=== PATIENT | female | born 1960 | race Caucasian/White ===

== ENCOUNTER 2017-03-17 00:55 | Inpatient (IN) | payer MEDICAID, OTHER ==
--- NOTE | 2017-03-17 01:28 | ED Physician Chart ---
Chief Complaint/HPI - Patient Information Date Seen:: 03/17/17 Time Seen:: 01:15 Chief Complaint:: Leg Swelling History of Present Illness:: onset x 2 days of LE swelling and redness; pt denies H/As, Neck pain, C/P, SOB, Abd. Pain, A/N/V/D/C, fever, chills, or urinary s/s Allergies:: Allergies Allergy/AdvReac Type Severity Reaction Status Date / Time No Known Allergies Allergy Verified 03/17/17 01:07 Historian:: Patient, EMS Review:: Nurse's Note Reviewed, EMS run form Reviewed, Transfer documents Reviewed Review of Systems - Review of Systems General/Constitutional: Fever, Chills, No weight loss, No weakness, No diaphoresis, No edema, No loss of appetite Skin: No skin lesions, No rash, No bruising Head: No headache, No light-headedness Eyes: No loss of vision, No pain, No diplopia ENT: No earache, No nasal drainage, No sore throat, No tinnitus Neck: No neck pain, No swelling, No thyromegaly, No stiffness, No mass noted Cardio Vascular: No chest pain, No palpitations, No PND, No orthopnea, No edema Pulmonary: No SOB, No cough, No sputum, No wheezing GI: No nausea, No vomiting, No diarrhea, No pain, No melena, No hematochezia, No constipation, No hematemesis G/U: No dysuria, No frequency, No hematuria 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: No vaginal discharge, No abnormal vaginal bleed, No contraction Musculoskeletal: Bone or joint pain, Back pain, Muscle pain Endocrine: No polyuria, No polydipsia Psychiatric: No prior psych history, No depression, No anxiety, No suicidal ideation, No homicidal ideation, No auditory hallucination Hematopoietic: No bruising, No lymphadenopathy Allergic/Immuno: No urticaria, No angioedema Neurological: No syncope, No focal symptoms, No paresthesia, No headache, No seizure, No dizziness, No confusion, No vertigo Past Medical History - Past Medical History Obtainable: Yes Past Medical History: HTN, Asthma/COPD, CVA/TIA, Dyslipidemia, Seizures, Thyroid disorder Family History: Diabetes Melitus, HTN Social History: Non Smoker, No Alcohol, No Drug Use, Single, Care Facility Surgical History: other (Orthopedic Surgeries) Psychiatricy History: None Medication: Reviewed Family Medical History - Family Member Mother History Unknown: Yes Ethnicity: Non- Physical Exam - Physical Examination General/Constitutional: Awake, Well-developed, well-nourished, Alert, No distress, GCS 15, Non-toxic appearing, Ambulatory Head: Atraumatic Eyes: Lids, conjuctiva normal, PERRL, EOMI Skin: No rash, No skin lesions, No ecchymosis, Well hydrated, No lymphadenopathy Other Skin comments:: + LE Cellulitis ENMT: External ears, nose nl, Nasal exam nl, Lips, teeth, gums nl Neck: Nontender, Full ROM w/o pain, No JVD, No nuchal rigidity, No bruit, No mass, No stridor Respiratory: Nl effort/Exclusion, Clear to Auscultation, No Wheeze/Rhonchi/Rales Cardio Vascular: RRR, No murmur, gallop, rubs, NL S1 S2 GI: No tenderness/rebounding/guarding, No organomegaly, No hernia, Normal BS's, Nondistended, No mass/bruits, No McBurney tenderness : No CVA tenderness Extremities: No tenderness or effusion, Full ROM, normal strength in all extremities, No edema, Normal digits & nails Neuro/Psych: Alert/oriented, DTR's symmetric, Normal sensory exam, Normal motor strength, Judgement/insight normal, Mood normal, Normal gait, No focal deficits Misc: normal gait, Normal back, No paraspinal tenderness Labs/Radiology/EKG Results - Lab Results Results: unremarkable - Radiology Results Results: U/S: No DVT; Negative ED Septic Shock - . Is Septic Shock (SBP<90, OR Lactate>4 mmol\L) present?: No Reassessment (Disposition) - Reassessment Reassessment Condition:: Improved - Diagnosis Diagnosis:: Cellulitis - Aftercare/Follow up Instructions Aftercare/Follow-Up Instructions:: Counseled pt regarding lab results/diagnosis & need follow up, Counseled pt & family regarding lab results/diagnosis & need follow up - Patient Disposition Discharge/Transfer:: Acute Care w/in this hosp Accepting Physician:: Dr. De La O Time Called:: [id number] Time Responded:: 03:15 Admitted to:: Med/Surg Spoke to:: Dr. De La O Admitting Medical Physician:: Dr. De La O Condition at Disposition:: Stable, Improved
[2017-03-17] MEDS ORDERED: cefTRIAXone 1 GM in Sodium Chloride 0.9% 50 ML IV ONE (01:31)
[2017-03-17 02:08] LABS: HEMOGLOBIN 14.1 gm/dL (11.7-15.5); MEAN CELL VOLUME 92.3 fl (81-100); MEAN CORPUSCULAR HGB CONC 33.6 pg (28.0-36.0); MEAN PLATELET VOLUME 9.7 fl; PLATELET COUNT 144 Th/cmm (150-400); RED BLOOD COUNT 4.55 Mil/cmm (3.80-5.10); RED CELL DISTRIBUTION WIDTH 13.7 % (11.5-20.0); WHITE BLOOD COUNT 6.1 Th/cmm (4.8-10.8)
[2017-03-17 02:18] LABS: TROP I 0.01 ng/mL (0.01-0.05)
[2017-03-17 02:19] LABS: ALB/GLOB RATIO 1.1 (1.0-1.8); ALKALINE PHOSPHATASE 64 U/L (34-104); ANION GAP 7.4 (7.0-16.0); BILIRUBIN,TOTAL 0.3 mg/dL (0.3-1.0); BUN - UREA NITROGEN 21 mg/dL (7-25); CALCIUM SERUM 10.1 mg/dL (8.6-10.3); CARBON DIOXIDE 28.7 mEq/L (21.0-31.0); CHLORIDE 105 mEq/L (98-107); CHOLESTEROL 135 mg/dL (<200); CREATININE - SERUM 0.7 mg/dL (0.6-1.2); GLUCOSE 85 mg/dL (70-105); POTASSIUM SERUM 4.1 mEq/L (3.5-5.1); SGOT 16 U/L (13-39); SGPT/ALT 12 U/L (7-52); SODIUM SERUM 137 mEq/L (136-145); TRIGLYCERIDES 70 mg/dL (<150)
[2017-03-17 02:23] LABS: INR 0.95 (0.5-1.4); PROTHROMBIN TIME (TEST) 9.9 SECONDS (9.5-11.5)
[2017-03-17 02:27] LABS: BNP 60.3 pg/mL (5.0-100.0)
[2017-03-17 02:31] LABS: TOTAL CELLS COUNTED 100
[2017-03-17 02:32] LABS: BAND NEUTROPHILE 2 % (0-10); EOSINOPHIL 2 % (0-5); NEUTROPHILS 35 % (40-80); PLATELET ESTIMATE ADEQUATE (NORMAL)
[2017-03-17] MEDS ORDERED: Non-Formulary Item 1 EA (Potassium Chloride [Potassium Chloride] 1 TAB) PO SCH (09:00)
--- NOTE | 2017-03-17 09:36 | Diagnostic Imaging Report ---
Bilateral lower extremity Doppler venous ultrasound exam HISTORY: Pain/swelling Sonographic sector images were obtained through the deep venous systems of both legs. Associated Doppler data was obtained. The exam demonstrates patency of the common femoral, superficial femoral, popliteal, and posterior tibial veins bilaterally. Specifically, no thrombus is seen. There are normal compressibility and augmentation responses. IMPRESSION: Negative exam for deep vein thrombophlebitis.
[2017-03-17] MEDS ORDERED: VTE Chemical Prophylaxis Screen/Admission MC PRN (11:30)
[2017-03-17] MEDS: Ampicillin Sodium/Sulbactam 3 GM in Sodium Chloride 0.9% 100 ML IV SCH ×3 (12:08→23:32)
--- NOTE | 2017-03-17 12:44 | Internal Medicine Prog Note ---
Internal Medicine Subjective - Subjective Service Date: 03/17/17 (DICTATED [id number]) Internal Medicine Objective - Results Result Diagrams: 03/17/17 01:40 03/17/17 01:40 Recent Labs: Laboratory Last Values WBC 6.1 Th/cmm (4.8-10.8) 03/17/17 01:40 RBC 4.55 Mil/cmm (3.80-5.10) 03/17/17 01:40 Hgb 14.1 gm/dL (11.7-15.5) 03/17/17 01:40 Hct 42.0 % (35.0-45.0) 03/17/17 01:40 MCV 92.3 fl (81-100) 03/17/17 01:40 MCH 31.0 pg (27.0-31.0) 03/17/17 01:40 MCHC Differential 33.6 pg (28.0-36.0) 03/17/17 01:40 RDW 13.7 % (11.5-20.0) 03/17/17 01:40 Plt Count 144 Th/cmm (150-400) L 03/17/17 01:40 MPV 9.7 fl 03/17/17 01:40 Band Neutrophils % 2 % (0-10) 03/17/17 01:40 Neutrophils (Manual) 35 % (40-80) L 03/17/17 01:40 Lymphocytes 54 % (20-50) H 03/17/17 01:40 Monocytes 7 % (2-10) 03/17/17 01:40 Eosinophils 2 % (0-5) 03/17/17 01:40 Platelet Estimate ADEQUATE (NORMAL) 03/17/17 01:40 PT 9.9 SECONDS (9.5-11.5) 03/17/17 01:40 INR 0.95 (0.5-1.4) 03/17/17 01:40 PTT (Actin FS) 28.3 SECONDS (26.0-38.0) 03/17/17 01:40 D-Dimer 215 ng/mL (100-400) 03/17/17 01:40 Sodium 137 mEq/L (136-145) 03/17/17 01:40 Potassium 4.1 mEq/L (3.5-5.1) 03/17/17 01:40 Chloride 105 mEq/L (98-107) 03/17/17 01:40 Carbon Dioxide 28.7 mEq/L (21.0-31.0) 03/17/17 01:40 Anion Gap 7.4 (7.0-16.0) 03/17/17 01:40 BUN 21 mg/dL (7-25) 03/17/17 01:40 Creatinine 0.7 mg/dL (0.6-1.2) 03/17/17 01:40 Est GFR ( Amer) > 60.0 ml/min (>90) 03/17/17 01:40 Est GFR (Non-Af Amer) > 60.0 ml/min 03/17/17 01:40 BUN/Creatinine Ratio 30.0 03/17/17 01:40 Glucose 85 mg/dL (70-105) 03/17/17 01:40 Whole Bld Lactic Acid 1.00 mmol/L (0.60-1.99) 03/17/17 01:40 Calcium 10.1 mg/dL (8.6-10.3) 03/17/17 01:40 Total Bilirubin 0.3 mg/dL (0.3-1.0) 03/17/17 01:40 AST 16 U/L (13-39) 03/17/17 01:40 ALT 12 U/L (7-52) 03/17/17 01:40 Alkaline Phosphatase 64 U/L (34-104) 03/17/17 01:40 Creatine Kinase 27 U/L (30-223) L 03/17/17 01:40 Troponin I 0.01 ng/mL (0.01-0.05) 03/17/17 01:40 B-Natriuretic Peptide 60.3 pg/mL (5.0-100.0) 03/17/17 01:40 Total Protein 6.3 gm/dL (6.0-8.3) 03/17/17 01:40 Albumin 3.3 gm/dL (3.7-5.3) L 03/17/17 01:40 Globulin 3.0 gm/dL 03/17/17 01:40 Albumin/Globulin Ratio 1.1 (1.0-1.8) 03/17/17 01:40 Triglycerides 70 mg/dL (<150) 03/17/17 01:40 Cholesterol 135 mg/dL (<200) 03/17/17 01:40 LDL Cholesterol Direct 81 mg/dL (75-193) 03/17/17 01:40 HDL Cholesterol 51 mg/dL (23-92) 03/17/17 01:40 Serum , Qual NEGATIVE (NEGATIVE) 03/17/17 01:40 - Physical Exam Vitals and I&O: Vital Signs Temp 98.7 F 03/17/17 08:48 Pulse 64 03/17/17 08:48 Resp 16 03/17/17 08:48 BP 138/90 03/17/17 10:34 Pulse Ox 96 03/17/17 08:48 Active Medications: Current Medications Allopurinol (Zyloprim) 100 mg PO DAILY [facility] Stop: 05/16/17 08:59 Last Admin: 03/17/17 10:35 Dose: 100 mg Divalproex Sodium (Depakote Dr) 500 mg PO QAM [facility] PRN Reason: Protocol Stop: 05/16/17 08:59 Last Admin: 03/17/17 10:52 Dose: Not Given Divalproex Sodium (Depakote Dr) 500 mg PO HS [facility] PRN Reason: Protocol Stop: 05/16/17 20:59 Furosemide (Lasix) 20 mg PO DAILY [facility] Stop: 05/16/17 08:59 Last Admin: 03/17/17 10:34 Dose: 20 mg Heparin Sodium (Porcine) (Heparin) 5,000 units SUBQ Q12HR [facility] Stop: 05/16/17 20:59 Ampicillin Sodium/Sulbactam (Sodium 3 gm/ Sodium Chloride) 100 mls @ 100 mls/ hr IV Q6HR [facility] Stop: 05/16/17 11:59 Last Admin: 03/17/17 12:08 Dose: 100 mls/hr Levothyroxine Sodium (Synthroid) 0.075 mg PO QDAC [facility] Stop: 05/17/17 07:29 Miscellaneous (Potassium Chloride [Potassium Chloride]) 1 tab PO DAILY [facility] Stop: 05/16/17 08:59 Last Admin: 03/17/17 10:52 Dose: Not Given Miscellaneous (Vte Chemical Prophylaxis Screen/ Admission) 1 ea [facility] PRN PRN PRN Reason: PROTOCOL Stop: 05/16/17 11:29 Montelukast Sodium (Singulair) 10 mg PO DAILY [facility] Stop: 05/16/17 08:59 Last Admin: 03/17/17 10:35 Dose: 10 mg Quetiapine Fumarate (Seroquel) 300 mg PO HS [facility] PRN Reason: Protocol Stop: 05/16/17 20:59 Simvastatin (Zocor) 20 mg PO HS [facility] PRN Reason: Protocol Stop: 05/16/17 20:59 Temazepam (Restoril) 30 mg PO HS PRN PRN Reason: SLEEP Stop: 05/16/17 09:30 Theophylline (Carlos-Dur) 300 mg PO HS [facility] Stop: 05/16/17 20:59 Internal Medicine Assmt/Plan - Assessment Assessment: BLE CELLULITIS HYPERLIPIDEMIA HTN MORBID OBESITY GOUT HYPOTHYROIDISM COPD CONVULSIONS GENERALIZED WEAKNESS
--- NOTE | 2017-03-17 14:15 | History & Physical ---
ADMIT DATE: 03/17/2017 CHIEF COMPLAINT: Bilateral lower extremity swelling. HISTORY OF PRESENT ILLNESS: This is a 56-year-old female who is a resident of [facility] who has a 2-day history of bilateral lower extremity swelling associated with redness. The patient denies any pain, any fevers or any chills. The patient had a lower extremity ultrasound done in the ER and the impression is no evidence for any DVT. PAST MEDICAL HISTORY: Gout, hypertension, CVA, dyslipidemia, anemia, hypothyroidism, hypokalemia, psychosis, convulsions, COPD. FAMILY HISTORY: Diabetes and hypertension. SOCIAL HISTORY: The patient is a resident of [facility]. PAST SURGICAL HISTORY: Unknown. REVIEW OF SYSTEMS: GENERAL: Denies any fevers, any chills. CARDIOVASCULAR: Denies any chest pain. RESPIRATORY: Denies any shortness of breath. GASTROINTESTINAL: Denies any nausea, vomiting, abdominal pain. GENITOURINARY: Denies any dysuria. SKIN: Complains of redness on bilateral lower extremity. All other systems are reviewed by me and negative. PHYSICAL EXAMINATION: GENERAL: The patient is morbidly obese, awake, alert, in no acute distress. VITAL SIGNS: Temperature 98.7, heart rate 64, blood pressure 138/90, respirations 16, O2 96%. HEENT: Head; normocephalic, atraumatic. NECK: Supple. No mass. LUNGS: Clear bilaterally. HEART: Regular rate and rhythm. ABDOMEN: Soft, nontender. LABORATORY DATA: WBC 6.1, H and H 14.1 and 42.0, platelet of 144. Sodium 137, potassium 4.1, chloride 105, BUN 21, creatinine 0.7. BNP 60.3, albumin 3.3. DIAGNOSTICS: Lower extremity ultrasound was done. Negative for any DVT. ASSESSMENT: 1. Bilateral lower extremity cellulitis. 2. Hyperlipidemia. 3. Morbid obesity. 4. Hypertension. 5. Generalized weakness. 6. Convulsion. 7. Gout. 8. Chronic obstructive pulmonary disease. 9. Hypothyroidism. PLAN: The patient will be admitted to the med/surg unit. The patient will be on IV antibiotics of Unasyn 3 grams IV q. 6. A.m. labs will be monitored. We will continue to monitor this patient. JOB# [id number]
[2017-03-17] MEDS ORDERED: Non-Formulary Item 1 EA (Temazepam [Restoril] 30 MG) PO SCH (21:00)
[2017-03-17] MEDS: Theophylline 100 mg ER Tab PO SCH (21:11)
[2017-03-18] MEDS: Ampicillin Sodium/Sulbactam 3 GM in Sodium Chloride 0.9% 100 ML IV SCH ×3 (05:23→17:27)
[2017-03-18 05:48] LABS: HEMATOCRIT 43.2 % (35.0-45.0); HEMOGLOBIN 14.2 gm/dL (11.7-15.5); MEAN CELL VOLUME 92.7 fl (81-100); MEAN CORPUSCULAR HEMOGLOBIN 30.4 pg (27.0-31.0); MEAN CORPUSCULAR HGB CONC 32.8 pg (28.0-36.0); MEAN PLATELET VOLUME 9.4 fl; PLATELET COUNT 143 Th/cmm (150-400); RED BLOOD COUNT 4.66 Mil/cmm (3.80-5.10); RED CELL DISTRIBUTION WIDTH 13.8 % (11.5-20.0); WHITE BLOOD COUNT 5.7 Th/cmm (4.8-10.8)
[2017-03-18 06:07] LABS: ANION GAP 5.9 (7.0-16.0); BUN - UREA NITROGEN 22 mg/dL (7-25); BUN/CREATININE RATIO 24.4; CARBON DIOXIDE 33.6 mEq/L (21.0-31.0); CHLORIDE 105 mEq/L (98-107); CREATININE - SERUM 0.9 mg/dL (0.6-1.2); GLUCOSE 78 mg/dL (70-105); POTASSIUM SERUM 4.5 mEq/L (3.5-5.1); SODIUM SERUM 140 mEq/L (136-145)
[2017-03-18 07:05] LABS: EOSINOPHIL 2 % (0-5); NEUTROPHILS 26 % (40-80); TOTAL CELLS COUNTED 100
[2017-03-18 07:06] LABS: PLATELET ESTIMATE ADEQUATE (NORMAL)
[2017-03-18] MEDS: Levothyroxine 0.075 Mg Tab PO SCH (08:30)
[2017-03-18] MEDS: Potassium Chloride 10 mEq ER Tab PO SCH (08:31)
--- NOTE | 2017-03-18 09:21 | Diagnostic Imaging Report ---
Bilateral lower extremity Doppler arterial ultrasound exam HISTORY: Pain, peripheral vascular disease Sonographic sector images were obtained through the arterial systems of both legs. Associated Doppler data was obtained. The exam of the right leg demonstrates triphasic waveforms within the common femoral artery. Biphasic waveforms are noted throughout the superficial femoral, popliteal, anterior tibial, posterior tibial, dorsalis pedis arteries. There is a greater than expected decrease in velocity within the arteries below the knee. Sonographic images demonstrate mild diffuse atherosclerotic plaque. The right ankle-brachial index remains normal (1.25). The exam of the left leg demonstrates triphasic waveforms within the common femoral and popliteal arteries. Biphasic waveforms are noted of the superficial femoral, anterior tibial and posterior tibial arteries. Monophasic waveforms are seen within the left dorsalis pedis artery. Slight increase in velocity noted within the anterior tibial artery region. The ankle-brachial index is normal (1.14). Sonographic images demonstrate mild diffuse atherosclerotic changes. IMPRESSION: 1. Evidence of mild diffuse bilateral atherosclerotic changes. No significant narrowing or stenosis identified.
--- NOTE | 2017-03-18 11:37 | Internal Medicine Prog Note ---
Internal Medicine Subjective - Subjective Service Date: 03/18/17 Patient seen and examined:: with staff Patient is:: awake Patient Complaints of:: other (ble pain) Per staff patient has:: tolerating meds Internal Medicine Objective - Results Result Diagrams: 03/18/17 05:26 03/18/17 05:26 Recent Labs: Laboratory Last Values WBC 5.7 Th/cmm (4.8-10.8) 03/18/17 05:26 RBC 4.66 Mil/cmm (3.80-5.10) 03/18/17 05:26 Hgb 14.2 gm/dL (11.7-15.5) 03/18/17 05:26 Hct 43.2 % (35.0-45.0) 03/18/17 05:26 MCV 92.7 fl (81-100) 03/18/17 05:26 MCH 30.4 pg (27.0-31.0) 03/18/17 05:26 MCHC Differential 32.8 pg (28.0-36.0) 03/18/17 05:26 RDW 13.8 % (11.5-20.0) 03/18/17 05:26 Plt Count 143 Th/cmm (150-400) L 03/18/17 05:26 MPV 9.4 fl 03/18/17 05:26 Band Neutrophils % 2 % (0-10) 03/17/17 01:40 Neutrophils (Manual) 26 % (40-80) L 03/18/17 05:26 Lymphocytes 61 % (20-50) H 03/18/17 05:26 Monocytes 7 % (2-10) 03/18/17 05:26 Eosinophils 2 % (0-5) 03/18/17 05:26 Atypical Lymphocytes 4 % 03/18/17 05:26 Platelet Estimate ADEQUATE (NORMAL) 03/18/17 05:26 Smear Path Review Y 03/18/17 05:26 PT 9.9 SECONDS (9.5-11.5) 03/17/17 01:40 INR 0.95 (0.5-1.4) 03/17/17 01:40 PTT (Actin FS) 28.3 SECONDS (26.0-38.0) 03/17/17 01:40 D-Dimer 215 ng/mL (100-400) 03/17/17 01:40 Sodium 140 mEq/L (136-145) 03/18/17 05:26 Potassium 4.5 mEq/L (3.5-5.1) 03/18/17 05:26 Chloride 105 mEq/L (98-107) 03/18/17 05:26 Carbon Dioxide 33.6 mEq/L (21.0-31.0) H 03/18/17 05:26 Anion Gap 5.9 (7.0-16.0) L 03/18/17 05:26 BUN 22 mg/dL (7-25) 03/18/17 05:26 Creatinine 0.9 mg/dL (0.6-1.2) 03/18/17 05:26 Est GFR ( Amer) > 60.0 ml/min (>90) 03/18/17 05:26 Est GFR (Non-Af Amer) > 60.0 ml/min 03/18/17 05:26 BUN/Creatinine Ratio 24.4 03/18/17 05:26 Glucose 78 mg/dL (70-105) 03/18/17 05:26 Whole Bld Lactic Acid 1.00 mmol/L (0.60-1.99) 03/17/17 01:40 Calcium 10.0 mg/dL (8.6-10.3) 03/18/17 05:26 Total Bilirubin 0.3 mg/dL (0.3-1.0) 03/17/17 01:40 AST 16 U/L (13-39) 03/17/17 01:40 ALT 12 U/L (7-52) 03/17/17 01:40 Alkaline Phosphatase 64 U/L (34-104) 03/17/17 01:40 Creatine Kinase 27 U/L (30-223) L 03/17/17 01:40 Troponin I 0.01 ng/mL (0.01-0.05) 03/17/17 01:40 B-Natriuretic Peptide 60.3 pg/mL (5.0-100.0) 03/17/17 01:40 Total Protein 6.3 gm/dL (6.0-8.3) 03/17/17 01:40 Albumin 3.3 gm/dL (3.7-5.3) L 03/17/17 01:40 Globulin 3.0 gm/dL 03/17/17 01:40 Albumin/Globulin Ratio 1.1 (1.0-1.8) 03/17/17 01:40 Triglycerides 70 mg/dL (<150) 03/17/17 01:40 Cholesterol 135 mg/dL (<200) 03/17/17 01:40 LDL Cholesterol Direct 81 mg/dL (75-193) 03/17/17 01:40 HDL Cholesterol 51 mg/dL (23-92) 03/17/17 01:40 Serum , Qual NEGATIVE (NEGATIVE) 03/17/17 01:40 - Physical Exam Vitals and I&O: Vital Signs Temp 97 F 03/18/17 08:00 Pulse 56 03/18/17 08:00 Resp 20 03/18/17 08:00 BP 125/89 03/18/17 08:30 Pulse Ox 96 03/18/17 08:00 Intake & Output 03/17/17 03/18/17 03/18/17 18:59 06:59 18:59 Intake Total 100 750 Balance 100 750 Weight (lbs) 256 lb 9.6 oz 265 lb Intake: Intake, IV Amount 100 250 Ampicillin Sodium/ 100 200 Sulbactam 3 gm In Sodium Chloride 0.9% 100 ml @ 100 mls/hr IV Q6HR [facility] Rx #:[id number] Oral 500 Other: # Voids 3 Stool Characteristics Soft Active Medications: Current Medications Allopurinol (Zyloprim) 100 mg PO DAILY [facility] Stop: 05/16/17 08:59 Last Admin: 03/18/17 08:31 Dose: 100 mg Divalproex Sodium (Depakote Dr) 500 mg PO [facility] PRN Reason: Protocol Stop: 05/16/17 08:59 Last Admin: 03/18/17 08:31 Dose: Not Given Divalproex Sodium (Depakote Dr) 500 mg PO [facility] PRN Reason: Protocol Stop: 05/16/17 20:59 Last Admin: 03/17/17 21:11 Dose: 500 mg Furosemide (Lasix) 20 mg PO DAILY [facility] Stop: 05/16/17 08:59 Last Admin: 03/18/17 08:30 Dose: 20 mg Heparin Sodium (Porcine) (Heparin) 5,000 units SUBQ Q12HR [facility] Stop: 05/16/17 20:59 Last Admin: 03/18/17 08:31 Dose: 5,000 units Ampicillin Sodium/Sulbactam (Sodium 3 gm/ Sodium Chloride) 100 mls @ 100 mls/ hr IV Q6HR [facility] Stop: 05/16/17 11:59 Last Admin: 03/18/17 05:23 Dose: 100 mls/hr Levothyroxine Sodium (Synthroid) 0.075 mg PO QDAC [facility] Stop: 05/17/17 07:29 Last Admin: 03/18/17 08:30 Dose: 0.075 mg Miscellaneous (Vte Chemical Prophylaxis Screen/ Admission) 1 ea [facility] PRN PRN PRN Reason: PROTOCOL Stop: 05/16/17 11:29 Montelukast Sodium (Singulair) 10 mg PO DAILY [facility] Stop: 05/16/17 08:59 Last Admin: 03/18/17 08:31 Dose: 10 mg Potassium Chloride (Klor-Con) 10 meq PO DAILY [facility] Stop: 05/16/17 08:59 Last Admin: 03/18/17 08:31 Dose: 10 meq Quetiapine Fumarate (Seroquel) 300 mg PO HS [facility] PRN Reason: Protocol Stop: 05/16/17 20:59 Last Admin: 03/17/17 21:11 Dose: 300 mg Simvastatin (Zocor) 20 mg PO HS [facility] PRN Reason: Protocol Stop: 05/16/17 20:59 Last Admin: 03/17/17 21:11 Dose: 20 mg Temazepam (Restoril) 30 mg PO HS PRN PRN Reason: SLEEP Stop: 05/16/17 09:30 Theophylline (Carlos-Dur) 300 mg PO HS [facility] Stop: 05/16/17 20:59 Last Admin: 03/17/17 21:11 Dose: 300 mg General: alert HEENT: NC/AT, PERRLA Neck: Supple Lungs: CTAB Cardiovascular: RRR, Normal S1, Normal S2, without murmur Abdomen: soft, non-tender, non-distended, positive bowel sound Extremities: edema Neurological: alert Internal Medicine Assmt/Plan - Assessment Assessment: BLE CELLULITIS HYPERLIPIDEMIA HTN MORBID OBESITY GOUT HYPOTHYROIDISM COPD CONVULSIONS GENERALIZED WEAKNESS - Plan Plan: continue ivabx await for 2d echo results am labs continue current plan of care
--- NOTE | 2017-03-18 20:25 | Consultation ---
DATE OF CONSULTATION: 03/18/2017 AGE: 56. SEX: Female. PHYSICIAN: Dr. West. CHIEF COMPLAINT: Agitation and irritability. HISTORY OF PRESENT ILLNESS: The patient is a 56-year-old female who was admitted to the hospital because of increased swelling of her bilateral lower extremities. The patient has history of what seems to be bipolar disorder. The patient has been confused and hyper-talkative and restless. She also has episodes of agitation and irritability. The patient has been taking Depakote 500 mg twice a day. She still also needs lots of redirections. PAST PSYCHIATRIC HISTORY: The patient has history of what seems to be bipolar disorder. PAST MEDICAL HISTORY: The patient was admitted to the hospital with bilateral lower extremity swelling. She also has history of hyperlipidemia, morbid obesity, hypertension, generalized weakness, convulsions and gout. The patient also has a history of hypothyroidism and chronic obstructive pulmonary disease. SOCIAL HISTORY: No known alcohol or street drug use. MENTAL STATUS EXAM: The patient appears older than her stated age. Extremely obese. Anxious. Restless. Irritable mood, hyper-talkative. Thought processes are circumstantial with flight of ideas. The patient denied hallucinations or delusions, but seems to be paranoid. She denies suicidal or homicide. The patient is alert, but unable to assess orientation or memory because of her confusion and agitation. ASSESSMENT: PRIMARY DIAGNOSIS: Unspecified psychosis. SECONDARY DIAGNOSIS: Rule out depression with psychosis. Rule out bipolar disorder. TREATMENT PLAN: We will continue Depakote same dose and we will monitor Depakote blood level. Also, we will reevaluate the patient for further recommendations. Thanks to Dr. De La O and we will follow with you. [facility]# [id number]
[2017-03-18] MEDS: Theophylline 100 mg ER Tab PO SCH (22:17)
--- NOTE | 2017-03-18 23:13 | Admit Criteria Form ---
Admit Criteria Forms - Admit Criteria Diagnosis: CELLULITIS Clinical Indications for Admission to Inpatient Care (Place 'X' for any and all applicable criteria): Admission is indicated for ANY ONE of the following(1)(2)(3)(4)(5): [ ]I. Limb-threatening infection [ ]II. High-risk comorbid condition as indicated by ANY ONE of the following: [ ]a) Uncontrolled diabetes (eg, HbA1c greater than 10% (0.1)) [ ]b) Cirrhosis [ ]c) Neutropenia [ ]d) Asplenia [ ]e) Immunosuppression [ ]f) Symptomatic heart failure [ ]III. Failure of outpatient therapy as indicated by ALL of the following: [ ]a) Progression or no improvement after adequate trial (minimum of 48 hours, with longer period for stable lower extremity infection) [ ]b) Adequate antibiotic regimen as indicated by use of ANY ONE of the following: [ ]i) First-generation cephalosporin (e.g., cephalexin) [ ]ii) Antistaphylococcal penicillin (e.g., dicloxacillin) [ ]iii) Penicillin-allergic patient regimen (clindamycin, extended-spectrum fluoroquinolone, or doxycycline) [ ]iv) Resistant organism (eg, methicillin-resistant Staphylococcus aureus) regimen (6) [ ]c) Outpatient intravenous therapy regimen is not appropriate due to ANY ONE of the following. (7)(8)(9)(10): [ ]i) It was tried and was not successful (eg, progression of infection). [ ]ii) It is not available or cannot be arranged in a clinically appropriate time frame (e.g., the next day). [ ]iii) Clinical presentation (eg, acuity of infection, rapidity of progression, confirmed or suspected bacteremia) is judged to require ALL of the following: [ ]1) Immediate initiation of intravenous therapy ( eg, cannot wait for next day) [ ]2) Intensity of patient monitoring and observation (eg, vital sign measurement, checks for infection progression) that cannot be provided at other than inpatient level of care [ ]IV. Mental status changes [ ]V. Bacteremia [ ]. Hemodynamic instability [ ]VII. Suspected necrotizing soft tissue infection (e.g., gas in tissue)(11)( 12) [ ]VIII. Orbital infection (13)(14) [ ]IX. Associated surgical procedure (e.g., abscess drainage, debridement) not amenable to outpatient, emergency department, or observation care [ ]X. Cutaneous gangrene [ ]XI. High fever (temperature greater than 39.5 degrees C (103.1 degrees F) (oral)) not responsive to outpatient, emergency department, or observation care therapy [X ]XIII. Inpatient admission required rather than observation care (Also use Cellulitis: Observation Care as appropriate) because of ANY ONE of the following : [ ]a) Periorbital or perineal infection that is severe or worsening [ ]b) Severe pain requiring acute inpatient management [ ]c) IV fluid to replace significant ongoing (e.g., for over 24 hours) losses (greater than 3L/m2 per day) [ ]d) Compartment syndrome monitoring (17) [ ]e) Strict or protective (eg, laminar flow) isolation [ ]f) Urgent debridement or skin grafting [ ]g) Bone or joint debridement [ ]h) Immediate inpatient surgery [ X]i) Other condition, treatment or monitoring requiring inpatient admission Extended stay beyond goal length of stay may be needed for (1)(18): [ ]a) Necrotizing soft tissue infection or fasciitis [ ]b) Gram-negative infection [ ]c) Methicillin-resistant Staphylococcal aureus (MRSA) infection [ ]d) Peripheral venous insufficiency with cellulitis [ ]e) Extensive edema [ ]f) Sepsis or continued Hemodynamic instability [ ]g) Continued high fever or mental status change [ ]h) Bacteremia [ ]i) Active serious comorbid conditions ( eg, heart failure, renal insufficiency) The original [facility] Responsys content created by [facility] [employer] has been revised. The portions of the content which have been revised are identified through the use of italic text or in bold, and [facility] has neither reviewed nor approved the modified material. All other unmodified content is copyright [facility] Please see references footnoted in the original [facility] edition 2016 Admit Criteria Met?: Yes
[2017-03-19] MEDS: Ampicillin Sodium/Sulbactam 3 GM in Sodium Chloride 0.9% 100 ML IV SCH ×4 (00:06→17:08)
[2017-03-19 06:28] LABS: HEMOGLOBIN 15.5 gm/dL (11.7-15.5); MEAN CELL VOLUME 92.1 fl (81-100); MEAN CORPUSCULAR HGB CONC 33.6 pg (28.0-36.0); MEAN PLATELET VOLUME 9.6 fl; PLATELET COUNT 135 Th/cmm (150-400); RED CELL DISTRIBUTION WIDTH 13.7 % (11.5-20.0); WHITE BLOOD COUNT 5.4 Th/cmm (4.8-10.8)
[2017-03-19] MEDS: Levothyroxine 0.075 Mg Tab PO SCH (06:46)
[2017-03-19 06:54] LABS: ANION GAP 8.7 (7.0-16.0); BUN - UREA NITROGEN 19 mg/dL (7-25); BUN/CREATININE RATIO 27.1; CALCIUM SERUM 10.6 mg/dL (8.6-10.3); CARBON DIOXIDE 30.5 mEq/L (21.0-31.0); CHLORIDE 104 mEq/L (98-107); CREATININE - SERUM 0.7 mg/dL (0.6-1.2); GLUCOSE 79 mg/dL (70-105); POTASSIUM SERUM 4.2 mEq/L (3.5-5.1); SODIUM SERUM 139 mEq/L (136-145)
[2017-03-19 08:40] LABS: NEUTROPHILS 39 % (40-80); PLATELET ESTIMATE DECREASED PLATELETS (NORMAL); PLATELET MORPHOLOGY NORMAL (NORMAL); TOTAL CELLS COUNTED 100
[2017-03-19] MEDS: Potassium Chloride 10 mEq ER Tab PO SCH (09:35)
--- NOTE | 2017-03-19 11:16 | Internal Medicine Prog Note ---
Internal Medicine Subjective - Subjective Service Date: 03/19/17 Patient is:: awake Patient Complaints of:: other (ble pain) Per staff patient has:: tolerating meds Internal Medicine Objective - Results Result Diagrams: 03/19/17 06:10 03/19/17 06:10 Recent Labs: Laboratory Last Values WBC 5.4 Th/cmm (4.8-10.8) 03/19/17 06:10 RBC 5.00 Mil/cmm (3.80-5.10) 03/19/17 06:10 Hgb 15.5 gm/dL (11.7-15.5) 03/19/17 06:10 Hct 46.0 % (35.0-45.0) H 03/19/17 06:10 MCV 92.1 fl (81-100) 03/19/17 06:10 MCH 31.0 pg (27.0-31.0) 03/19/17 06:10 MCHC Differential 33.6 pg (28.0-36.0) 03/19/17 06:10 RDW 13.7 % (11.5-20.0) 03/19/17 06:10 Plt Count 135 Th/cmm (150-400) L 03/19/17 06:10 MPV 9.6 fl 03/19/17 06:10 Band Neutrophils % 2 % (0-10) 03/17/17 01:40 Neutrophils (Manual) 39 % (40-80) L 03/19/17 06:10 Lymphocytes 45 % (20-50) 03/19/17 06:10 Monocytes 10 % (2-10) 03/19/17 06:10 Eosinophils 2 % (0-5) 03/18/17 05:26 Atypical Lymphocytes 6 % 03/19/17 06:10 Platelet Estimate DECREASED PLATELETS (NORMAL) 03/19/17 06:10 Platelet Morphology NORMAL (NORMAL) 03/19/17 06:10 RBC Morph Micro Appear NORMAL (NORMAL) 03/19/17 06:10 Smear Path Review Y 03/18/17 05:26 PT 9.9 SECONDS (9.5-11.5) 03/17/17 01:40 INR 0.95 (0.5-1.4) 03/17/17 01:40 PTT (Actin FS) 28.3 SECONDS (26.0-38.0) 03/17/17 01:40 D-Dimer 215 ng/mL (100-400) 03/17/17 01:40 Sodium 139 mEq/L (136-145) 03/19/17 06:10 Potassium 4.2 mEq/L (3.5-5.1) 03/19/17 06:10 Chloride 104 mEq/L (98-107) 03/19/17 06:10 Carbon Dioxide 30.5 mEq/L (21.0-31.0) 03/19/17 06:10 Anion Gap 8.7 (7.0-16.0) 03/19/17 06:10 BUN 19 mg/dL (7-25) 03/19/17 06:10 Creatinine 0.7 mg/dL (0.6-1.2) 03/19/17 06:10 Est GFR ( Amer) > 60.0 ml/min (>90) 03/19/17 06:10 Est GFR (Non-Af Amer) > 60.0 ml/min 03/19/17 06:10 BUN/Creatinine Ratio 27.1 03/19/17 06:10 Glucose 79 mg/dL (70-105) 03/19/17 06:10 Whole Bld Lactic Acid 1.00 mmol/L (0.60-1.99) 03/17/17 01:40 Calcium 10.6 mg/dL (8.6-10.3) H 03/19/17 06:10 Total Bilirubin 0.3 mg/dL (0.3-1.0) 03/17/17 01:40 AST 16 U/L (13-39) 03/17/17 01:40 ALT 12 U/L (7-52) 03/17/17 01:40 Alkaline Phosphatase 64 U/L (34-104) 03/17/17 01:40 Creatine Kinase 27 U/L (30-223) L 03/17/17 01:40 Troponin I 0.01 ng/mL (0.01-0.05) 03/17/17 01:40 B-Natriuretic Peptide 60.3 pg/mL (5.0-100.0) 03/17/17 01:40 Total Protein 6.3 gm/dL (6.0-8.3) 03/17/17 01:40 Albumin 3.3 gm/dL (3.7-5.3) L 03/17/17 01:40 Globulin 3.0 gm/dL 03/17/17 01:40 Albumin/Globulin Ratio 1.1 (1.0-1.8) 03/17/17 01:40 Triglycerides 70 mg/dL (<150) 03/17/17 01:40 Cholesterol 135 mg/dL (<200) 03/17/17 01:40 LDL Cholesterol Direct 81 mg/dL (75-193) 03/17/17 01:40 HDL Cholesterol 51 mg/dL (23-92) 03/17/17 01:40 Serum , Qual NEGATIVE (NEGATIVE) 03/17/17 01:40 - Physical Exam Vitals and I&O: Vital Signs Temp 97.7 F 03/19/17 11:00 Pulse 84 03/19/17 11:00 Resp 18 03/19/17 11:00 BP 138/79 03/19/17 11:00 Pulse Ox 100 03/19/17 11:00 Intake & Output 03/18/17 03/19/17 03/19/17 18:59 06:59 18:59 Intake Total 200 200 100 Balance 200 200 100 Weight (lbs) 264 lb Intake: Intake, IV Amount 200 100 100 Ampicillin Sodium/ 200 100 100 Sulbactam 3 gm In Sodium Chloride 0.9% 100 ml @ 100 mls/hr IV Q6HR [facility] Rx #:[id number] Oral 100 Other: # Voids 3 # Bowel Movements 1 Stool Characteristics Soft Active Medications: Current Medications Allopurinol (Zyloprim) 100 mg PO DAILY [facility] Stop: 05/16/17 08:59 Last Admin: 03/19/17 09:35 Dose: 100 mg Divalproex Sodium (Depakote Dr) 500 mg PO QAM [facility] PRN Reason: Protocol Stop: 05/16/17 08:59 Last Admin: 03/19/17 09:34 Dose: 500 mg Divalproex Sodium (Depakote Dr) 500 mg PO HS [facility] PRN Reason: Protocol Stop: 05/16/17 20:59 Last Admin: 03/18/17 22:16 Dose: 500 mg Furosemide (Lasix) 40 mg PO DAILY [facility] Stop: 05/16/17 08:59 Last Admin: 03/19/17 09:34 Dose: 40 mg Heparin Sodium (Porcine) (Heparin) 5,000 units SUBQ Q12HR [facility] Stop: 05/16/17 20:59 Last Admin: 03/19/17 09:35 Dose: 5,000 units Ampicillin Sodium/Sulbactam (Sodium 3 gm/ Sodium Chloride) 100 mls @ 100 mls/ hr IV Q6HR [facility] Stop: 05/16/17 11:59 Last Infusion: 03/19/17 07:14 Dose: Infused Levothyroxine Sodium (Synthroid) 0.075 mg PO QDAC [facility] Stop: 05/17/17 07:29 Last Admin: 03/19/17 06:46 Dose: 0.075 mg Miscellaneous (Vte Chemical Prophylaxis Screen/ Admission) 1 ea [facility] PRN PRN PRN Reason: PROTOCOL Stop: 05/16/17 11:29 Montelukast Sodium (Singulair) 10 mg PO DAILY [facility] Stop: 05/16/17 08:59 Last Admin: 03/19/17 09:35 Dose: 10 mg Mupirocin (Bactroban Oint) 1 appl NS BID [facility] Stop: 03/23/17 09:01 Last Admin: 03/19/17 09:43 Dose: 1 appl Potassium Chloride (Klor-Con) 10 meq PO DAILY [facility] Stop: 05/16/17 08:59 Last Admin: 03/19/17 09:35 Dose: 10 meq Quetiapine Fumarate (Seroquel) 300 mg PO HS [facility] PRN Reason: Protocol Stop: 05/16/17 20:59 Last Admin: 03/18/17 22:16 Dose: 300 mg Simvastatin (Zocor) 20 mg PO HS [facility] PRN Reason: Protocol Stop: 05/16/17 20:59 Last Admin: 03/18/17 22:17 Dose: 20 mg Temazepam (Restoril) 30 mg PO HS PRN PRN Reason: SLEEP Stop: 05/16/17 09:30 Theophylline (Carlos-Dur) 300 mg PO HS [facility] Stop: 05/16/17 20:59 Last Admin: 03/18/17 22:17 Dose: 300 mg General: alert HEENT: NC/AT, PERRLA Neck: Supple Lungs: CTAB Cardiovascular: RRR, Normal S1, Normal S2, without murmur Abdomen: soft, non-tender, non-distended, positive bowel sound Extremities: edema Neurological: alert Internal Medicine Assmt/Plan - Assessment Assessment: BLE CELLULITIS HYPERLIPIDEMIA HTN MORBID OBESITY GOUT HYPOTHYROIDISM COPD CONVULSIONS GENERALIZED WEAKNESS - Plan Plan: continue ivabx am labs continue current plan of care Nutritional Asmnt/Malnutr-PDOC - Dietary Evaluation Malnutrition Findings (Please click <Entered> for more info): Nutritional Asmnt/Malnutrition Start: 03/18/17 16: 50 Text: Status: Complete Freq: Document 03/18/17 16:50 MAXWELL (Rec: 03/18/17 17:01 [email or web address]) Nutritional Asmnt/Malnutrition Patient General Information Nutritional Screening High Risk Screening Diagnosis Bilateral lower extremity cellulitis Pertinent Medical Hx/Surgical Hx Gout, HTN, CVA, dyslipidemia, anemia, hypothyroidism, hypokalemia, psychosis, convulsions, COPD Subjective Information 56 year old female from SNF. Pt was sitting upright in bed, pleasant, however questionable historian. Avg PO intake 100% of meals yesterday, meeting nutritional needs. Pt stated food today was delicious, usually excellent appetite. Pt denied GI problems. Teeth intact, no difficulties chewing/ swallowing. Pt reported she suspected hx of allergies to nuts many years ago, however not a current issue. Pt claimed to be diabetic, however no DM noted in H&P and glucose labs WNL. Pt does not know UBW, aware of being obese, curious of CBW, unable to obtain due to bedscale on special setting. Current Diet Order/ Nutrition Support Regular Pertinent Medications Lasix, Synthroid, Klor-Con, Seroquel Pertinent Labs Reviewed. Nutritional Hx/Data Height 5 ft 1 in Height (Calculated Centimeters) 154.9 Current Weight (lbs) 265 lb Weight (Calculated Kilograms) 120.2 Weight (Calculated Grams) 218062.0 [place] Body Weight 105 Weight Status Morbidly Obese GI Symptoms Skin Integrity/Comment: Miki 14. BLE cellulitis, otherwise skin intact. Current %PO Good (75-100%) Estimated Nutritional Goals BEE in Kcals: Adj wt of IBW Calories/Kcals/Kg AdjBW 145lb/65.9kg (adjusted to 265lb) Kcals Calculated 1648-1977kcal (25-30kcal/kg) Protein: Adj wt of IBW Protein Calculated 66g (1g/kg) Fluid: ml 1648-1977ml (1ml/kcal) Nutritional Problem 1. Problem Problem Malnutrition related to Etiology energy imbalance, possible excessive oral intake aeb Signs/Symptoms: BMI >40, PO intake 100% since adm Malnutrition Related to Morbid Obesity Malnutrition related to morbid obesity Weight 200% of ideal wt Query Text:(Any 1 Criteria met) Malnutrition related to morbid obesity Yes Intervention/Recommendation Comments 1. Continue with current diet order. Avg PO intake is adequate. 2. Obtain CBW, questionable EMR weight records 280lb vs 265lb. Expected Outcomes/Goals Expected Outcomes/Goals 1. PO intake continue to meet at least 75% of estimated nutritional needs.
[2017-03-19] MEDS: Theophylline 100 mg ER Tab PO SCH (21:44)
[2017-03-20] MEDS: Ampicillin Sodium/Sulbactam 3 GM in Sodium Chloride 0.9% 100 ML IV SCH ×4 (01:18→17:35)
[2017-03-20] MEDS: Levothyroxine 0.075 Mg Tab PO SCH (06:31)
[2017-03-20 07:19] LABS: ANION GAP 5.3 (7.0-16.0); BUN - UREA NITROGEN 22 mg/dL (7-25); CALCIUM SERUM 10.5 mg/dL (8.6-10.3); CARBON DIOXIDE 34.3 mEq/L (21.0-31.0); CHLORIDE 103 mEq/L (98-107); GLUCOSE 80 mg/dL (70-105); POTASSIUM SERUM 4.6 mEq/L (3.5-5.1); SODIUM SERUM 138 mEq/L (136-145)
[2017-03-20 07:31] LABS: HEMATOCRIT 46.4 % (35.0-45.0); HEMOGLOBIN 15.4 gm/dL (11.7-15.5); MEAN CELL VOLUME 92.3 fl (81-100); MEAN CORPUSCULAR HEMOGLOBIN 30.6 pg (27.0-31.0); MEAN CORPUSCULAR HGB CONC 33.2 pg (28.0-36.0); MEAN PLATELET VOLUME 9.6 fl; PLATELET COUNT 138 Th/cmm (150-400); RED BLOOD COUNT 5.03 Mil/cmm (3.80-5.10); RED CELL DISTRIBUTION WIDTH 13.8 % (11.5-20.0); WHITE BLOOD COUNT 5.6 Th/cmm (4.8-10.8)
[2017-03-20] MEDS: Potassium Chloride 10 mEq ER Tab PO SCH (09:07)
[2017-03-20 09:12] LABS: BAND NEUTROPHILE 1 % (0-10); EOSINOPHIL 1 % (0-5); NEUTROPHILS 38 % (40-80); TOTAL CELLS COUNTED 100
[2017-03-20 09:14] LABS: PLATELET ESTIMATE DECREASED PLATELETS (NORMAL); PLATELET MORPHOLOGY NORMAL (NORMAL)
--- NOTE | 2017-03-20 13:13 | Internal Medicine Prog Note ---
Internal Medicine Subjective - Subjective Service Date: 03/20/17 Patient seen and examined:: with staff Patient is:: awake Patient Complaints of:: other (ble pain) Per staff patient has:: tolerating meds Internal Medicine Objective - Results Result Diagrams: 03/20/17 06:39 03/20/17 06:39 Recent Labs: Laboratory Last Values WBC 5.6 Th/cmm (4.8-10.8) 03/20/17 06:39 RBC 5.03 Mil/cmm (3.80-5.10) 03/20/17 06:39 Hgb 15.4 gm/dL (11.7-15.5) 03/20/17 06:39 Hct 46.4 % (35.0-45.0) H 03/20/17 06:39 MCV 92.3 fl (81-100) 03/20/17 06:39 MCH 30.6 pg (27.0-31.0) 03/20/17 06:39 MCHC Differential 33.2 pg (28.0-36.0) 03/20/17 06:39 RDW 13.8 % (11.5-20.0) 03/20/17 06:39 Plt Count 138 Th/cmm (150-400) L 03/20/17 06:39 MPV 9.6 fl 03/20/17 06:39 Band Neutrophils % 1 % (0-10) 03/20/17 06:39 Neutrophils (Manual) 38 % (40-80) L 03/20/17 06:39 Lymphocytes 46 % (20-50) 03/20/17 06:39 Monocytes 9 % (2-10) 03/20/17 06:39 Eosinophils 1 % (0-5) 03/20/17 06:39 Atypical Lymphocytes 5 % 03/20/17 06:39 Platelet Estimate DECREASED PLATELETS (NORMAL) 03/20/17 06:39 Platelet Morphology NORMAL (NORMAL) 03/20/17 06:39 RBC Morph Micro Appear NORMAL (NORMAL) 03/20/17 06:39 Smear Path Review Y 03/18/17 05:26 PT 9.9 SECONDS (9.5-11.5) 03/17/17 01:40 INR 0.95 (0.5-1.4) 03/17/17 01:40 PTT (Actin FS) 28.3 SECONDS (26.0-38.0) 03/17/17 01:40 D-Dimer 215 ng/mL (100-400) 03/17/17 01:40 Sodium 138 mEq/L (136-145) 03/20/17 06:39 Potassium 4.6 mEq/L (3.5-5.1) 03/20/17 06:39 Chloride 103 mEq/L (98-107) 03/20/17 06:39 Carbon Dioxide 34.3 mEq/L (21.0-31.0) H 03/20/17 06:39 Anion Gap 5.3 (7.0-16.0) L 03/20/17 06:39 BUN 22 mg/dL (7-25) 03/20/17 06:39 Creatinine 1.0 mg/dL (0.6-1.2) 03/20/17 06:39 Est GFR ( Amer) > 60.0 ml/min (>90) 03/20/17 06:39 Est GFR (Non-Af Amer) > 60.0 ml/min 03/20/17 06:39 BUN/Creatinine Ratio 22.0 03/20/17 06:39 Glucose 80 mg/dL (70-105) 03/20/17 06:39 Whole Bld Lactic Acid 1.00 mmol/L (0.60-1.99) 03/17/17 01:40 Calcium 10.5 mg/dL (8.6-10.3) H 03/20/17 06:39 Total Bilirubin 0.3 mg/dL (0.3-1.0) 03/17/17 01:40 AST 16 U/L (13-39) 03/17/17 01:40 ALT 12 U/L (7-52) 03/17/17 01:40 Alkaline Phosphatase 64 U/L (34-104) 03/17/17 01:40 Creatine Kinase 27 U/L (30-223) L 03/17/17 01:40 Troponin I 0.01 ng/mL (0.01-0.05) 03/17/17 01:40 B-Natriuretic Peptide 60.3 pg/mL (5.0-100.0) 03/17/17 01:40 Total Protein 6.3 gm/dL (6.0-8.3) 03/17/17 01:40 Albumin 3.3 gm/dL (3.7-5.3) L 03/17/17 01:40 Globulin 3.0 gm/dL 03/17/17 01:40 Albumin/Globulin Ratio 1.1 (1.0-1.8) 03/17/17 01:40 Triglycerides 70 mg/dL (<150) 03/17/17 01:40 Cholesterol 135 mg/dL (<200) 03/17/17 01:40 LDL Cholesterol Direct 81 mg/dL (75-193) 03/17/17 01:40 HDL Cholesterol 51 mg/dL (23-92) 03/17/17 01:40 Serum , Qual NEGATIVE (NEGATIVE) 03/17/17 01:40 - Physical Exam Vitals and I&O: Vital Signs Temp 98.0 F 03/20/17 05:01 Pulse 69 03/20/17 05:01 Resp 17 03/20/17 11:50 BP 144/84 03/20/17 09:06 Pulse Ox 96 03/20/17 05:01 Intake & Output 03/19/17 03/20/17 03/20/17 18:59 06:59 18:59 Intake Total 300 320 Balance 300 320 Weight (lbs) 277 lb Intake: Intake, IV Amount 300 200 Ampicillin Sodium/ 300 200 Sulbactam 3 gm In Sodium Chloride 0.9% 100 ml @ 100 mls/hr IV Q6HR [facility] Rx #:[id number] Oral 120 Other: # Voids 3 # Bowel Movements 0 Active Medications: Current Medications Allopurinol (Zyloprim) 100 mg PO DAILY [facility] Stop: 05/16/17 08:59 Last Admin: 03/20/17 09:07 Dose: 100 mg Divalproex Sodium (Depakote Dr) 500 mg PO QAM [facility]CCA PRN Reason: Protocol Stop: 05/16/17 08:59 Last Admin: 03/20/17 09:07 Dose: 500 mg Divalproex Sodium (Depakote Dr) 500 mg PO HS [facility] PRN Reason: Protocol Stop: 05/16/17 20:59 Last Admin: 03/19/17 21:44 Dose: 500 mg Furosemide (Lasix) 40 mg PO DAILY [facility] Stop: 05/16/17 08:59 Last Admin: 03/20/17 09:06 Dose: 40 mg Heparin Sodium (Porcine) (Heparin) 5,000 units SUBQ Q12HR [facility] Stop: 05/16/17 20:59 Last Admin: 03/20/17 09:07 Dose: 5,000 units Ampicillin Sodium/Sulbactam (Sodium 3 gm/ Sodium Chloride) 100 mls @ 100 mls/ hr IV Q6HR [facility] Stop: 05/16/17 11:59 Last Admin: 03/20/17 12:36 Dose: 700 mls/hr Levothyroxine Sodium (Synthroid) 0.075 mg PO QDAC [facility] Stop: 05/17/17 07:29 Last Admin: 03/20/17 06:31 Dose: 0.075 mg Miscellaneous (Vte Chemical Prophylaxis Screen/ Admission) 1 ea [facility] PRN PRN PRN Reason: PROTOCOL Stop: 05/16/17 11:29 Montelukast Sodium (Singulair) 10 mg PO DAILY [facility] Stop: 05/16/17 08:59 Last Admin: 03/20/17 09:07 Dose: 10 mg Mupirocin (Bactroban Oint) 1 appl NS BID [facility] Stop: 03/23/17 09:01 Last Admin: 03/20/17 09:06 Dose: 1 appl Potassium Chloride (Klor-Con) 10 meq PO DAILY [facility] Stop: 05/16/17 08:59 Last Admin: 03/20/17 09:07 Dose: 10 meq Quetiapine Fumarate (Seroquel) 300 mg PO HS [facility] PRN Reason: Protocol Stop: 05/16/17 20:59 Last Admin: 03/19/17 21:44 Dose: 300 mg Simvastatin (Zocor) 20 mg PO HS [facility]CCA PRN Reason: Protocol Stop: 05/16/17 20:59 Last Admin: 03/19/17 21:42 Dose: 20 mg Temazepam (Restoril) 30 mg PO HS PRN PRN Reason: SLEEP Stop: 05/16/17 09:30 Theophylline (Carlos-Dur) 300 mg PO HS [facility] Stop: 05/16/17 20:59 Last Admin: 03/19/17 21:44 Dose: 300 mg General: alert HEENT: NC/AT, PERRLA Neck: Supple Lungs: CTAB Cardiovascular: RRR, Normal S1, Normal S2, without murmur Abdomen: soft, non-tender, non-distended, positive bowel sound Extremities: edema Neurological: alert Internal Medicine Assmt/Plan - Assessment Assessment: BLE CELLULITIS HYPERLIPIDEMIA HTN MORBID OBESITY GOUT HYPOTHYROIDISM COPD CONVULSIONS GENERALIZED WEAKNESS - Plan Plan: dc planning in am continue ivabx am labs continue current plan of care Nutritional Asmnt/Malnutr-PDOC - Dietary Evaluation Malnutrition Findings (Please click <Entered> for more info): Nutritional Asmnt/Malnutrition Start: 03/18/17 16: 50 Text: Status: Complete Freq: Document 03/18/17 16:50 GSUN (Rec: 03/18/17 17:01 [email or web address] [email or web address]) Nutritional Asmnt/Malnutrition Patient General Information Nutritional Screening High Risk Screening Diagnosis Bilateral lower extremity cellulitis Pertinent Medical Hx/Surgical Hx Gout, HTN, CVA, dyslipidemia, anemia, hypothyroidism, hypokalemia, psychosis, convulsions, COPD Subjective Information 56 year old female from SNF. Pt was sitting upright in bed, pleasant, however questionable historian. Avg PO intake 100% of meals yesterday, meeting nutritional needs. Pt stated food today was delicious, usually excellent appetite. Pt denied GI problems. Teeth intact, no difficulties chewing/ swallowing. Pt reported she suspected hx of allergies to nuts many years ago, however not a current issue. Pt claimed to be diabetic, however no DM noted in H&P and glucose labs WNL. Pt does not know UBW, aware of being obese, curious of CBW, unable to obtain due to bedscale on special setting. Current Diet Order/ Nutrition Support Regular Pertinent Medications Lasix, Synthroid, Klor-Con, Seroquel Pertinent Labs Reviewed. Nutritional Hx/Data Height 5 ft 1 in Height (Calculated Centimeters) 154.9 Current Weight (lbs) 265 lb Weight (Calculated Kilograms) 120.2 Weight (Calculated Grams) 387257.0 [place] Body Weight 105 Weight Status Morbidly Obese GI Symptoms Skin Integrity/Comment: Miki 14. BLE cellulitis, otherwise skin intact. Current %PO Good (75-100%) Estimated Nutritional Goals BEE in Kcals: Adj wt of IBW Calories/Kcals/Kg AdjBW 145lb/65.9kg (adjusted to 265lb) Kcals Calculated 1648-1977kcal (25-30kcal/kg) Protein: Adj wt of IBW Protein Calculated 66g (1g/kg) Fluid: ml 1648-1977ml (1ml/kcal) Nutritional Problem 1. Problem Problem Malnutrition related to Etiology energy imbalance, possible excessive oral intake aeb Signs/Symptoms: BMI >40, PO intake 100% since adm Malnutrition Related to Morbid Obesity Malnutrition related to morbid obesity Weight 200% of ideal wt Query Text:(Any 1 Criteria met) Malnutrition related to morbid obesity Yes Intervention/Recommendation Comments 1. Continue with current diet order. Avg PO intake is adequate. 2. Obtain CBW, questionable EMR weight records 280lb vs 265lb. Expected Outcomes/Goals Expected Outcomes/Goals 1. PO intake continue to meet at least 75% of estimated nutritional needs.
[2017-03-20] MEDS: Theophylline 100 mg ER Tab PO SCH (21:45)
[2017-03-21] MEDS: Ampicillin Sodium/Sulbactam 3 GM in Sodium Chloride 0.9% 100 ML IV SCH ×2 (00:50→06:42)
[2017-03-21] MEDS: Levothyroxine 0.075 Mg Tab PO SCH (06:42)
[2017-03-21 06:58] LABS: HEMATOCRIT 46.2 % (35.0-45.0); HEMOGLOBIN 15.4 gm/dL (11.7-15.5); MEAN CELL VOLUME 92.2 fl (81-100); MEAN CORPUSCULAR HEMOGLOBIN 30.8 pg (27.0-31.0); MEAN CORPUSCULAR HGB CONC 33.4 pg (28.0-36.0); MEAN PLATELET VOLUME 9.7 fl; PLATELET COUNT 141 Th/cmm (150-400); RED BLOOD COUNT 5.01 Mil/cmm (3.80-5.10); WHITE BLOOD COUNT 6.1 Th/cmm (4.8-10.8)
[2017-03-21 07:10] LABS: BUN - UREA NITROGEN 22 mg/dL (7-25); BUN/CREATININE RATIO 24.4; CALCIUM SERUM 10.3 mg/dL (8.6-10.3); CHLORIDE 101 mEq/L (98-107); CREATININE - SERUM 0.9 mg/dL (0.6-1.2); GLUCOSE 83 mg/dL (70-105); SODIUM SERUM 135 mEq/L (136-145)
[2017-03-21 08:43] LABS: BAND NEUTROPHILE 0 % (0-10); EOSINOPHIL 3 % (0-5); NEUTROPHILS 35 % (40-80); TOTAL CELLS COUNTED 100
[2017-03-21] MEDS: Potassium Chloride 10 mEq ER Tab PO SCH (09:14)
--- NOTE | 2017-03-21 10:46 | Progress Notes ---
DATE: 03/21/2017 SUBJECTIVE: Chart reviewed and the patient interviewed. Also discussed the patient's condition with the staff and reviewed records and labs. The patient is still anxious and is still guarded and withdrawn. The patient also is still restless and is still easily agitated at times, but easier to redirect her. The patient also seems to be in a depressed mood. Otherwise, the patient is compliant with taking her medications with no side effects of medications. ASSESSMENT: The patient is less agitated, but still anxious. TREATMENT PLAN: Continue current medications and continue to monitor behavior and followup. [facility]# [id number]
--- NOTE | 2017-03-21 12:17 | Internal Medicine Prog Note ---
Internal Medicine Subjective - Subjective Service Date: 03/21/17 Patient seen and examined:: with staff Patient is:: awake Patient Complaints of:: other (ble pain) Per staff patient has:: no adverse event, tolerating meds Internal Medicine Objective - Results Result Diagrams: 03/21/17 06:30 03/21/17 06:30 Recent Labs: Laboratory Last Values WBC 6.1 Th/cmm (4.8-10.8) 03/21/17 06:30 RBC 5.01 Mil/cmm (3.80-5.10) 03/21/17 06:30 Hgb 15.4 gm/dL (11.7-15.5) 03/21/17 06:30 Hct 46.2 % (35.0-45.0) H 03/21/17 06:30 MCV 92.2 fl (81-100) 03/21/17 06:30 MCH 30.8 pg (27.0-31.0) 03/21/17 06:30 MCHC Differential 33.4 pg (28.0-36.0) 03/21/17 06:30 RDW 14.0 % (11.5-20.0) 03/21/17 06:30 Plt Count 141 Th/cmm (150-400) L 03/21/17 06:30 MPV 9.7 fl 03/21/17 06:30 Band Neutrophils % 0 % (0-10) 03/21/17 06:30 Neutrophils (Manual) 35 % (40-80) L 03/21/17 06:30 Lymphocytes 50 % (20-50) 03/21/17 06:30 Monocytes 12 % (2-10) H 03/21/17 06:30 Eosinophils 3 % (0-5) 03/21/17 06:30 Atypical Lymphocytes 5 % 03/20/17 06:39 Platelet Estimate DECREASED PLATELETS (NORMAL) 03/20/17 06:39 Platelet Morphology NORMAL (NORMAL) 03/20/17 06:39 RBC Morph Micro Appear NORMAL (NORMAL) 03/20/17 06:39 Smear Path Review Y 03/18/17 05:26 PT 9.9 SECONDS (9.5-11.5) 03/17/17 01:40 INR 0.95 (0.5-1.4) 03/17/17 01:40 PTT (Actin FS) 28.3 SECONDS (26.0-38.0) 03/17/17 01:40 D-Dimer 215 ng/mL (100-400) 03/17/17 01:40 Sodium 135 mEq/L (136-145) L 03/21/17 06:30 Potassium 4.0 mEq/L (3.5-5.1) 03/21/17 06:30 Chloride 101 mEq/L (98-107) 03/21/17 06:30 Carbon Dioxide 32.0 mEq/L (21.0-31.0) H 03/21/17 06:30 Anion Gap 6.0 (7.0-16.0) L 03/21/17 06:30 BUN 22 mg/dL (7-25) 03/21/17 06:30 Creatinine 0.9 mg/dL (0.6-1.2) 03/21/17 06:30 Est GFR ( Amer) > 60.0 ml/min (>90) 03/21/17 06:30 Est GFR (Non-Af Amer) > 60.0 ml/min 03/21/17 06:30 BUN/Creatinine Ratio 24.4 03/21/17 06:30 Glucose 83 mg/dL (70-105) 03/21/17 06:30 Whole Bld Lactic Acid 1.00 mmol/L (0.60-1.99) 03/17/17 01:40 Calcium 10.3 mg/dL (8.6-10.3) 03/21/17 06:30 Total Bilirubin 0.3 mg/dL (0.3-1.0) 03/17/17 01:40 AST 16 U/L (13-39) 03/17/17 01:40 ALT 12 U/L (7-52) 03/17/17 01:40 Alkaline Phosphatase 64 U/L (34-104) 03/17/17 01:40 Creatine Kinase 27 U/L (30-223) L 03/17/17 01:40 Troponin I 0.01 ng/mL (0.01-0.05) 03/17/17 01:40 B-Natriuretic Peptide 60.3 pg/mL (5.0-100.0) 03/17/17 01:40 Total Protein 6.3 gm/dL (6.0-8.3) 03/17/17 01:40 Albumin 3.3 gm/dL (3.7-5.3) L 03/17/17 01:40 Globulin 3.0 gm/dL 03/17/17 01:40 Albumin/Globulin Ratio 1.1 (1.0-1.8) 03/17/17 01:40 Triglycerides 70 mg/dL (<150) 03/17/17 01:40 Cholesterol 135 mg/dL (<200) 03/17/17 01:40 LDL Cholesterol Direct 81 mg/dL (75-193) 03/17/17 01:40 HDL Cholesterol 51 mg/dL (23-92) 03/17/17 01:40 Serum , Qual NEGATIVE (NEGATIVE) 03/17/17 01:40 - Physical Exam Vitals and I&O: Vital Signs Temp 98.2 F 03/21/17 12:11 Pulse 65 03/21/17 12:11 Resp 20 03/21/17 12:11 BP 121/65 03/21/17 12:11 Pulse Ox 97 03/21/17 12:11 Intake & Output 03/20/17 03/21/17 03/21/17 18:59 06:59 18:59 Intake Total 1150 100 Balance 1150 100 Weight (lbs) 277 lb 277 lb Intake: Intake, IV Amount 200 100 Ampicillin Sodium/ 200 100 Sulbactam 3 gm In Sodium Chloride 0.9% 100 ml @ 100 mls/hr IV Q6HR [facility] Rx #:[id number] Oral 950 Other: # Voids 4 # Bowel Movements 1 Active Medications: Current Medications Allopurinol (Zyloprim) 100 mg PO DAILY [facility] Stop: 05/16/17 08:59 Last Admin: 03/21/17 09:14 Dose: 100 mg Divalproex Sodium (Depakote Dr) 500 mg PO QAM [facility] PRN Reason: Protocol Stop: 05/16/17 08:59 Last Admin: 03/21/17 09:14 Dose: 500 mg Divalproex Sodium (Depakote Dr) 500 mg PO HS REBECCA PRN Reason: Protocol Stop: 05/16/17 20:59 Last Admin: 03/20/17 21:45 Dose: 500 mg Furosemide (Lasix) 40 mg PO DAILY [facility] Stop: 05/16/17 08:59 Last Admin: 03/21/17 09:14 Dose: 40 mg Heparin Sodium (Porcine) (Heparin) 5,000 units SUBQ Q12HR [facility] Stop: 05/16/17 20:59 Last Admin: 03/21/17 09:17 Dose: 5,000 units Ampicillin Sodium/Sulbactam (Sodium 3 gm/ Sodium Chloride) 100 mls @ 100 mls/ hr IV Q6HR [facility] Stop: 05/16/17 11:59 Last Admin: 03/21/17 06:42 Dose: 100 mls/hr Levothyroxine Sodium (Synthroid) 0.075 mg PO QDAC [facility] Stop: 05/17/17 07:29 Last Admin: 03/21/17 06:42 Dose: 0.075 mg Miscellaneous (Vte Chemical Prophylaxis Screen/ Admission) 1 ea [facility] PRN PRN PRN Reason: PROTOCOL Stop: 05/16/17 11:29 Montelukast Sodium (Singulair) 10 mg PO DAILY [facility] Stop: 05/16/17 08:59 Last Admin: 03/21/17 09:13 Dose: 10 mg Mupirocin (Bactroban Oint) 1 appl NS BID [facility] Stop: 03/23/17 09:01 Last Admin: 03/20/17 17:35 Dose: 1 appl Potassium Chloride (Klor-Con) 10 meq PO DAILY [facility] Stop: 05/16/17 08:59 Last Admin: 03/21/17 09:14 Dose: 10 meq Quetiapine Fumarate (Seroquel) 300 mg PO HS [facility] PRN Reason: Protocol Stop: 05/16/17 20:59 Last Admin: 03/20/17 21:45 Dose: 300 mg Simvastatin (Zocor) 20 mg PO HS REBECCA PRN Reason: Protocol Stop: 05/16/17 20:59 Last Admin: 03/20/17 21:45 Dose: 20 mg Temazepam (Restoril) 30 mg PO HS PRN PRN Reason: SLEEP Stop: 05/16/17 09:30 Theophylline (Carlos-Dur) 300 mg PO HS [facility] Stop: 05/16/17 20:59 Last Admin: 03/20/17 21:45 Dose: 300 mg General: alert HEENT: NC/AT, PERRLA Neck: Supple Lungs: CTAB Cardiovascular: RRR, Normal S1, Normal S2, without murmur Abdomen: soft, non-tender, non-distended, positive bowel sound Extremities: edema Neurological: alert Internal Medicine Assmt/Plan - Assessment Assessment: BLE CELLULITIS HYPERLIPIDEMIA HTN MORBID OBESITY GOUT HYPOTHYROIDISM COPD CONVULSIONS GENERALIZED WEAKNESS - Plan Plan: continue ivabx am labs continue current plan of care Nutritional Asmnt/Malnutr-PDOC - Dietary Evaluation Malnutrition Findings (Please click <Entered> for more info): Nutritional Asmnt/Malnutrition Start: 03/18/17 16: 50 Text: Status: Complete Freq: Document 03/18/17 16:50 GSUN (Rec: 03/18/17 17:01 [email or web address] [email or web address]) Nutritional Asmnt/Malnutrition Patient General Information Nutritional Screening High Risk Screening Diagnosis Bilateral lower extremity cellulitis Pertinent Medical Hx/Surgical Hx Gout, HTN, CVA, dyslipidemia, anemia, hypothyroidism, hypokalemia, psychosis, convulsions, COPD Subjective Information 56 year old female from SNF. Pt was sitting upright in bed, pleasant, however questionable historian. Avg PO intake 100% of meals yesterday, meeting nutritional needs. Pt stated food today was delicious, usually excellent appetite. Pt denied GI problems. Teeth intact, no difficulties chewing/ swallowing. Pt reported she suspected hx of allergies to nuts many years ago, however not a current issue. Pt claimed to be diabetic, however no DM noted in H&P and glucose labs WNL. Pt does not know UBW, aware of being obese, curious of CBW, unable to obtain due to bedscale on special setting. Current Diet Order/ Nutrition Support Regular Pertinent Medications Lasix, Synthroid, Klor-Con, Seroquel Pertinent Labs Reviewed. Nutritional Hx/Data Height 5 ft 1 in Height (Calculated Centimeters) 154.9 Current Weight (lbs) 265 lb Weight (Calculated Kilograms) 120.2 Weight (Calculated Grams) 725359.0 [place] Body Weight 105 Weight Status Morbidly Obese GI Symptoms Skin Integrity/Comment: Miki 14. BLE cellulitis, otherwise skin intact. Current %PO Good (75-100%) Estimated Nutritional Goals BEE in Kcals: Adj wt of IBW Calories/Kcals/Kg AdjBW 145lb/65.9kg (adjusted to 265lb) Kcals Calculated 1648-1977kcal (25-30kcal/kg) Protein: Adj wt of IBW Protein Calculated 66g (1g/kg) Fluid: ml 1648-1977ml (1ml/kcal) Nutritional Problem 1. Problem Problem Malnutrition related to Etiology energy imbalance, possible excessive oral intake aeb Signs/Symptoms: BMI >40, PO intake 100% since adm Malnutrition Related to Morbid Obesity Malnutrition related to morbid obesity Weight 200% of ideal wt Query Text:(Any 1 Criteria met) Malnutrition related to morbid obesity Yes Intervention/Recommendation Comments 1. Continue with current diet order. Avg PO intake is adequate. 2. Obtain CBW, questionable EMR weight records 280lb vs 265lb. Expected Outcomes/Goals Expected Outcomes/Goals 1. PO intake continue to meet at least 75% of estimated nutritional needs.
--- NOTE | 2017-03-21 12:53 | Internal Medicine Prog Note ---
Internal Medicine Subjective - Subjective Service Date: 03/21/17 (DC SUMMARY [id number]) Patient is:: awake Patient Complaints of:: other (ble pain) Per staff patient has:: no adverse event, tolerating meds Internal Medicine Objective - Results Result Diagrams: 03/21/17 06:30 03/21/17 06:30 Recent Labs: Laboratory Last Values WBC 6.1 Th/cmm (4.8-10.8) 03/21/17 06:30 RBC 5.01 Mil/cmm (3.80-5.10) 03/21/17 06:30 Hgb 15.4 gm/dL (11.7-15.5) 03/21/17 06:30 Hct 46.2 % (35.0-45.0) H 03/21/17 06:30 MCV 92.2 fl (81-100) 03/21/17 06:30 MCH 30.8 pg (27.0-31.0) 03/21/17 06:30 MCHC Differential 33.4 pg (28.0-36.0) 03/21/17 06:30 RDW 14.0 % (11.5-20.0) 03/21/17 06:30 Plt Count 141 Th/cmm (150-400) L 03/21/17 06:30 MPV 9.7 fl 03/21/17 06:30 Band Neutrophils % 0 % (0-10) 03/21/17 06:30 Neutrophils (Manual) 35 % (40-80) L 03/21/17 06:30 Lymphocytes 50 % (20-50) 03/21/17 06:30 Monocytes 12 % (2-10) H 03/21/17 06:30 Eosinophils 3 % (0-5) 03/21/17 06:30 Atypical Lymphocytes 5 % 03/20/17 06:39 Platelet Estimate DECREASED PLATELETS (NORMAL) 03/20/17 06:39 Platelet Morphology NORMAL (NORMAL) 03/20/17 06:39 RBC Morph Micro Appear NORMAL (NORMAL) 03/20/17 06:39 Smear Path Review Y 03/18/17 05:26 PT 9.9 SECONDS (9.5-11.5) 03/17/17 01:40 INR 0.95 (0.5-1.4) 03/17/17 01:40 PTT (Actin FS) 28.3 SECONDS (26.0-38.0) 03/17/17 01:40 D-Dimer 215 ng/mL (100-400) 03/17/17 01:40 Sodium 135 mEq/L (136-145) L 03/21/17 06:30 Potassium 4.0 mEq/L (3.5-5.1) 03/21/17 06:30 Chloride 101 mEq/L (98-107) 03/21/17 06:30 Carbon Dioxide 32.0 mEq/L (21.0-31.0) H 03/21/17 06:30 Anion Gap 6.0 (7.0-16.0) L 03/21/17 06:30 BUN 22 mg/dL (7-25) 03/21/17 06:30 Creatinine 0.9 mg/dL (0.6-1.2) 03/21/17 06:30 Est GFR ( Amer) > 60.0 ml/min (>90) 03/21/17 06:30 Est GFR (Non-Af Amer) > 60.0 ml/min 03/21/17 06:30 BUN/Creatinine Ratio 24.4 03/21/17 06:30 Glucose 83 mg/dL (70-105) 03/21/17 06:30 POC Glucose 90 MG/DL (70 - 105) 03/21/17 12:24 Whole Bld Lactic Acid 1.00 mmol/L (0.60-1.99) 03/17/17 01:40 Calcium 10.3 mg/dL (8.6-10.3) 03/21/17 06:30 Total Bilirubin 0.3 mg/dL (0.3-1.0) 03/17/17 01:40 AST 16 U/L (13-39) 03/17/17 01:40 ALT 12 U/L (7-52) 03/17/17 01:40 Alkaline Phosphatase 64 U/L (34-104) 03/17/17 01:40 Creatine Kinase 27 U/L (30-223) L 03/17/17 01:40 Troponin I 0.01 ng/mL (0.01-0.05) 03/17/17 01:40 B-Natriuretic Peptide 60.3 pg/mL (5.0-100.0) 03/17/17 01:40 Total Protein 6.3 gm/dL (6.0-8.3) 03/17/17 01:40 Albumin 3.3 gm/dL (3.7-5.3) L 03/17/17 01:40 Globulin 3.0 gm/dL 03/17/17 01:40 Albumin/Globulin Ratio 1.1 (1.0-1.8) 03/17/17 01:40 Triglycerides 70 mg/dL (<150) 03/17/17 01:40 Cholesterol 135 mg/dL (<200) 03/17/17 01:40 LDL Cholesterol Direct 81 mg/dL (75-193) 03/17/17 01:40 HDL Cholesterol 51 mg/dL (23-92) 03/17/17 01:40 Serum , Qual NEGATIVE (NEGATIVE) 03/17/17 01:40 - Physical Exam Vitals and I&O: Vital Signs Temp 98.2 F 03/21/17 12:11 Pulse 65 03/21/17 12:11 Resp 20 03/21/17 12:11 BP 121/65 03/21/17 12:11 Pulse Ox 97 03/21/17 12:11 Intake & Output 03/20/17 03/21/17 03/21/17 18:59 06:59 18:59 Intake Total 1150 100 Balance 1150 100 Weight (lbs) 277 lb 277 lb Intake: Intake, IV Amount 200 100 Ampicillin Sodium/ 200 100 Sulbactam 3 gm In Sodium Chloride 0.9% 100 ml @ 100 mls/hr IV Q6HR [facility] Rx #:[id number] Oral 950 Other: # Voids 4 # Bowel Movements 1 Active Medications: Current Medications Allopurinol (Zyloprim) 100 mg PO DAILY [facility] Stop: 05/16/17 08:59 Last Admin: 03/21/17 09:14 Dose: 100 mg Divalproex Sodium (Depakote Dr) 500 mg PO QAM [facility]BECCA PRN Reason: Protocol Stop: 05/16/17 08:59 Last Admin: 03/21/17 09:14 Dose: 500 mg Divalproex Sodium (Depakote Dr) 500 mg PO HS REBECCA PRN Reason: Protocol Stop: 05/16/17 20:59 Last Admin: 03/20/17 21:45 Dose: 500 mg Furosemide (Lasix) 40 mg PO DAILY [facility] Stop: 05/16/17 08:59 Last Admin: 03/21/17 09:14 Dose: 40 mg Heparin Sodium (Porcine) (Heparin) 5,000 units SUBQ Q12HR [facility] Stop: 05/16/17 20:59 Last Admin: 03/21/17 09:17 Dose: 5,000 units Ampicillin Sodium/Sulbactam (Sodium 3 gm/ Sodium Chloride) 100 mls @ 100 mls/ hr IV Q6HR [facility] Stop: 05/16/17 11:59 Last Admin: 03/21/17 06:42 Dose: 100 mls/hr Levothyroxine Sodium (Synthroid) 0.075 mg PO QDAC [facility] Stop: 05/17/17 07:29 Last Admin: 03/21/17 06:42 Dose: 0.075 mg Miscellaneous (Vte Chemical Prophylaxis Screen/ Admission) 1 ea [facility] PRN PRN PRN Reason: PROTOCOL Stop: 05/16/17 11:29 Montelukast Sodium (Singulair) 10 mg PO DAILY [facility] Stop: 05/16/17 08:59 Last Admin: 03/21/17 09:13 Dose: 10 mg Mupirocin (Bactroban Oint) 1 appl NS BID [facility] Stop: 03/23/17 09:01 Last Admin: 03/20/17 17:35 Dose: 1 appl Potassium Chloride (Klor-Con) 10 meq PO DAILY [facility] Stop: 05/16/17 08:59 Last Admin: 03/21/17 09:14 Dose: 10 meq Quetiapine Fumarate (Seroquel) 300 mg PO HS REBECCA PRN Reason: Protocol Stop: 05/16/17 20:59 Last Admin: 03/20/17 21:45 Dose: 300 mg Simvastatin (Zocor) 20 mg PO HS REBECCA PRN Reason: Protocol Stop: 05/16/17 20:59 Last Admin: 03/20/17 21:45 Dose: 20 mg Temazepam (Restoril) 30 mg PO HS PRN PRN Reason: SLEEP Stop: 05/16/17 09:30 Theophylline (Carlos-Dur) 300 mg PO HS [facility]BE[facility] Stop: 05/16/17 20:59 Last Admin: 03/20/17 21:45 Dose: 300 mg General: alert HEENT: NC/AT, PERRLA Neck: Supple Lungs: CTAB Cardiovascular: RRR, Normal S1, Normal S2, without murmur Abdomen: soft, non-tender, non-distended, positive bowel sound Extremities: edema Neurological: alert Internal Medicine Assmt/Plan - Assessment Assessment: BLE CELLULITIS HYPERLIPIDEMIA HTN MORBID OBESITY GOUT HYPOTHYROIDISM COPD CONVULSIONS GENERALIZED WEAKNESS - Plan Plan: continue ivabx am labs continue current plan of care Nutritional Asmnt/Malnutr-PDOC - Dietary Evaluation Malnutrition Findings (Please click <Entered> for more info): Nutritional Asmnt/Malnutrition Start: 03/18/17 16: 50 Text: Status: Complete Freq: Document 03/18/17 16:50 GSUN (Rec: 03/18/17 17:01 [email or web address] [email or web address]) Nutritional Asmnt/Malnutrition Patient General Information Nutritional Screening High Risk Screening Diagnosis Bilateral lower extremity cellulitis Pertinent Medical Hx/Surgical Hx Gout, HTN, CVA, dyslipidemia, anemia, hypothyroidism, hypokalemia, psychosis, convulsions, COPD Subjective Information 56 year old female from SNF. Pt was sitting upright in bed, pleasant, however questionable historian. Avg PO intake 100% of meals yesterday, meeting nutritional needs. Pt stated food today was delicious, usually excellent appetite. Pt denied GI problems. Teeth intact, no difficulties chewing/ swallowing. Pt reported she suspected hx of allergies to nuts many years ago, however not a current issue. Pt claimed to be diabetic, however no DM noted in H&P and glucose labs WNL. Pt does not know UBW, aware of being obese, curious of CBW, unable to obtain due to bedscale on special setting. Current Diet Order/ Nutrition Support Regular Pertinent Medications Lasix, Synthroid, Klor-Con, Seroquel Pertinent Labs Reviewed. Nutritional Hx/Data Height 5 ft 1 in Height (Calculated Centimeters) 154.9 Current Weight (lbs) 265 lb Weight (Calculated Kilograms) 120.2 Weight (Calculated Grams) 912614.0 [place] Body Weight 105 Weight Status Morbidly Obese GI Symptoms Skin Integrity/Comment: Miki 14. BLE cellulitis, otherwise skin intact. Current %PO Good (75-100%) Estimated Nutritional Goals BEE in Kcals: Adj wt of IBW Calories/Kcals/Kg AdjBW 145lb/65.9kg (adjusted to 265lb) Kcals Calculated 1648-1977kcal (25-30kcal/kg) Protein: Adj wt of IBW Protein Calculated 66g (1g/kg) Fluid: ml 1648-1977ml (1ml/kcal) Nutritional Problem 1. Problem Problem Malnutrition related to Etiology energy imbalance, possible excessive oral intake aeb Signs/Symptoms: BMI >40, PO intake 100% since adm Malnutrition Related to Morbid Obesity Malnutrition related to morbid obesity Weight 200% of ideal wt Query Text:(Any 1 Criteria met) Malnutrition related to morbid obesity Yes Intervention/Recommendation Comments 1. Continue with current diet order. Avg PO intake is adequate. 2. Obtain CBW, questionable EMR weight records 280lb vs 265lb. Expected Outcomes/Goals Expected Outcomes/Goals 1. PO intake continue to meet at least 75% of estimated nutritional needs.
--- NOTE | 2017-03-21 13:15 | Cardiology ---
03/18/[address] Helder De La O. M-MODE ECHOCARDIOGRAM: Mitral valve, anterior leaflet of mitral valve shows normal excursion, EF velocity. Posterior leaflet of the mitral valve shows normal excursion. Left ventricle posterior wall shows increased thickness, normal excursion. Interventricular septum shows increased thickness, normal excursion, hypertrophy of the left ventricle, ejection fraction 60%. Left atrium enlarged 4.3 cm. Aortic root shows normal dimension, normal excursion of aortic leaflets. CONCLUSION: Hypertrophy of the left ventricle, left atrial enlargement, ejection fraction 60%. 2D ECHO: Long axis view showed normal sized left ventricle with hypertrophy of the left ventricle. Left atrium enlarged, aortic root shows normal dimension, normal excursion of aortic leaflets. Short axis view of mitral valve normal. Short axis view of aortic valve normal. Apical four chamber view showed normal sized left ventricle with hypertrophy of the left ventricle. Left atrium enlarged. Right ventricular cavity, right atrium normal, no pericardial effusion. CONCLUSION: Hypertrophy of the left ventricle. Left atrial enlargement, ejection fraction 60%. Doppler study shows prominent A wave consistent with poor compliance of left ventricle. Mild mitral regurgitation, mild tricuspid regurgitation, right ventricular systolic pressure of 33 mmHg. CONCLUSION: Mild mitral regurgitation, mild tricuspid regurgitation, hypertrophy of the left ventricle, ejection fraction 60%. [facility]# [id number]
--- NOTE | 2017-03-22 00:11 | Progress Notes ---
DATE: 03/21/2017 DISCHARGE DIAGNOSES: Bilateral lower extremity cellulitis, hyperlipidemia, morbid obesity, hypertension, generalized weakness, convulsion, gout, chronic obstructive pulmonary disease, hypothyroidism. HISTORY OF PRESENT ILLNESS: A 56-year-old female who is a resident of [facility] with a 2-day history of bilateral lower extremity swelling associated with redness. The patient denies any pain, any fevers or any chills. The patient had lower extremity ultrasound done in the ER and the impression was no evidence for any DVT. PHYSICAL EXAMINATION: GENERAL: The patient is awake, alert, in no distress. VITAL SIGNS: Stable. ____. HEENT: Atraumatic. NECK: Supple. No masses. LUNGS: Clear bilaterally. HEART: Regular rate and rhythm. ABDOMEN: Soft, nontender. During the hospital stay, the patient was admitted to the Med/Surg unit. The patient was on IV antibiotics, Unasyn 3 grams IV q.6h. Also, patient was swabbed for MRSA. The patient was positive for MRSA of the nares. The patient was given Bactroban ____ b.i.d. CBC, BMP were being monitored as well. For this reason, the patient is stable for discharge. CONDITION UPON DISCHARGE: Fair. DISPOSITION: The patient going back to [facility]. JOB# [id number]
== END 2017-03-21 19:20 | disposition home or self-care (01) | DRG 383 ==
LOC: ER 00:55 → MSI 06:55
PROVIDERS: ADMIT Internal Medicine; ATTEND Internal Medicine
DX: L03.116 Cellulitis of left lower limb (principal); E44.1 Mild protein-calorie malnutrition; R56.9 Unspecified convulsions; I10 Essential (primary) hypertension; Z68.43 Body mass index [BMI] 50.0-59.9, adult; L03.115 Cellulitis of right lower limb; E78.5 Hyperlipidemia, unspecified; E66.01 Morbid (severe) obesity due to excess calories; F41.9 Anxiety disorder, unspecified; M10.9 Gout, unspecified; E03.9 Hypothyroidism, unspecified; F29 Unspecified psychosis not due to a substance or known physiological condition; J44.9 Chronic obstructive pulmonary disease, unspecified; Z86.73 Personal history of transient ischemic attack (TIA), and cerebral infarction without residual deficits; Z83.3 Family history of diabetes mellitus; Z82.49 Family history of ischemic heart disease and other diseases of the circulatory system
CPT/HCPCS: 36415-UA; 80048-TC; 80053-TC; 80061-TC; 82550-TC; 82948-90; 83605; 83880-TC; 84484-TC; 84703-TC; 85007-TC; 85027-TC; 85379-TC; 85610-TC; 93005; 93925-TC; 93970-TC-50; J0295; J0696; J1644; J7040; Z7610

== ENCOUNTER 2017-03-29 21:21 | Inpatient (IN) | payer MEDICAID ==
[2017-03-29] MEDS ORDERED: Sodium Chloride 0.9% 1,000 ML IV ONE (21:45)
--- NOTE | 2017-03-29 21:55 | ED Physician Chart ---
Chief Complaint/HPI - Patient Information Date Seen:: 03/29/17 Time Seen:: 21:50 Chief Complaint:: diarhea History of Present Illness:: pt sent from [place] after 3 episodes of diarrhea today. pt is morbid obese and unable to move self from stretcher to bed due to feels so weak. no fever. no n/v no abd p. pt does have her usual chronic pain but denies narc hx nor wanting any now. she was seen here recently and txd for cellulitis but is unable to tell me if she is still on abx for this. Allergies:: Allergies Allergy/AdvReac Type Severity Reaction Status Date / Time No Known Allergies Allergy Verified 03/17/17 01:07 Historian:: Patient Review of Systems - Review of Systems General/Constitutional: No fever, No chills, No weight loss, No weakness, No diaphoresis, No edema, No loss of appetite Skin: No skin lesions, No rash, No bruising Head: No headache, No light-headedness Eyes: No loss of vision, No pain, No diplopia ENT: No earache, No nasal drainage, No sore throat, No tinnitus Neck: No neck pain, No swelling, No thyromegaly, No stiffness, No mass noted Cardio Vascular: No chest pain, No palpitations, No PND, No orthopnea, No edema Pulmonary: No SOB, No cough, No sputum, No wheezing GI: No nausea, No vomiting, Diarrhea, No pain, No melena, No hematochezia, No constipation, No hematemesis G/U: No dysuria, No frequency, No hematuria Musculoskeletal: No bone or joint pain, No back pain, No muscle pain Endocrine: No polyuria, No polydipsia Psychiatric: No prior psych history, No depression, No anxiety, No suicidal ideation Hematopoietic: No bruising, No lymphadenopathy Allergic/Immuno: No urticaria, No angioedema Neurological: No syncope, No focal symptoms, No weakness, No paresthesia, No headache, No seizure, No dizziness, No confusion, No vertigo Past Medical History - Past Medical History Past Medical History: HTN, DM, Dyslipidemia, Other (morbid obese, recent b leg cellulitis) Social History: Care Facility Medication: Reviewed Family Medical History - Family Member Mother History Unknown: Yes Ethnicity: Non- Physical Exam - Physical Examination General/Constitutional: Awake, Well-developed, well-nourished, Alert, No distress, GCS 15, Non-toxic appearing Other Gen/Cons comments:: morbid obese. low motivation. alert and talking coherently. Head: Atraumatic Eyes: Lids, conjuctiva normal, PERRL, EOMI Skin: Nl inspection, No rash, No skin lesions, No ecchymosis, Well hydrated, No lymphadenopathy ENMT: External ears, nose nl, Nasal exam nl, Lips, teeth, gums nl Neck: Nontender, Full ROM w/o pain, No JVD, No nuchal rigidity, No bruit, No mass, No stridor Respiratory: Nl effort/Exclusion, Clear to Auscultation, No Wheeze/Rhonchi/Rales Cardio Vascular: RRR, No murmur, gallop, rubs, NL S1 S2 GI: No tenderness/rebounding/guarding, No organomegaly, No hernia, Normal BS's, Nondistended, No mass/bruits, No McBurney tenderness Other GI comments:: abd is obese and nontndr. pt appears to have a large hernia encompassing most of lt side of abdomen..obviously nonincarcerated. nrml bs. nontndr abd. pos nabs. : No CVA tenderness Extremities: No tenderness or effusion, Full ROM, normal strength in all extremities, No edema, Normal digits & nails Other Extremities comments:: lega are not red nor swollen. Neuro/Psych: Alert/oriented, DTR's symmetric, Normal sensory exam, Normal motor strength, Mood normal, Normal gait, No focal deficits Misc: normal gait, Normal back, No paraspinal tenderness Labs/Radiology/EKG Results - Lab Results Results: Laboratory Tests 03/29/17 03/29/17 03/29/17 22:00 22:00 23:20 WBC 7.8 D RBC 4.39 Hgb 13.7 Hct 40.5 D MCV 92.4 MCH 31.1 H MCHC Differential 33.7 RDW 13.9 Plt Count 146 L MPV 9.5 Neutrophils % 55.8 Lymphocytes % 34.2 Monocytes % 8.1 Eosinophils % 1.8 Basophils % 0.1 Sodium 138 Potassium 4.2 Chloride 107 Carbon Dioxide 25.6 Anion Gap 9.6 BUN 20 Creatinine 0.8 Est GFR ( Amer) > 60.0 Est GFR (Non-Af Amer) > 60.0 BUN/Creatinine Ratio 25.0 Glucose 81 Calcium 10.3 Total Bilirubin 0.3 AST 16 ALT 20 Alkaline Phosphatase 81 Total Protein 6.1 Albumin 3.4 L Globulin 2.7 Albumin/Globulin Ratio 1.3 Urine Color YELLOW Urine Clarity CLEAR Urine pH 6.5 Ur Specific [place] 1.010 Urine Protein NEGATIVE Urine Glucose (UA) NEGATIVE Urine Ketones NEGATIVE Urine Blood NEGATIVE Urine Nitrate NEGATIVE Urine Bilirubin NEGATIVE Urine Urobilinogen 0.2 Ur Leukocyte Esterase NEGATIVE ED Septic Shock - . Is Septic Shock (SBP<90, OR Lactate>4 mmol\L) present?: No Reassessment (Disposition) - Reassessment Reassessment:: yaneth tejada at 12;12am ...will admit. pt has had no abd p while in ed. episode of diarrhea witnessed (and smelled in ED...was copious yellow and seedy w no blood ..not black.) Reassessment Condition:: Improved - Diagnosis Diagnosis:: diarrhea dehydration/weakness diabetic - Patient Disposition Admitted to:: Med/Surg Condition at Disposition:: Improved
[2017-03-29 22:07] LABS: % BASOPHILS 0.1 % (0.0-2.0); % EOSINOPHILS 1.8 % (0.0-5.0); % LYMPHOCYTES 34.2 % (20.0-50.0); % MONOCYTES 8.1 % (2.0-10.0); % NEUTROPHILS 55.8 % (40.0-80.0); HEMOGLOBIN 13.7 gm/dL (11.7-15.5); MEAN CELL VOLUME 92.4 fl (81-100); MEAN CORPUSCULAR HEMOGLOBIN 31.1 pg (27.0-31.0); MEAN CORPUSCULAR HGB CONC 33.7 pg (28.0-36.0); MEAN PLATELET VOLUME 9.5 fl; NEUTROPHILE ABSOLUTE 4.4 Th/cmm (1.8-8.0); PLATELET COUNT 146 Th/cmm (150-400); RED BLOOD COUNT 4.39 Mil/cmm (3.80-5.10); RED CELL DISTRIBUTION WIDTH 13.9 % (11.5-20.0)
[2017-03-29 22:40] LABS: HEMATOCRIT 40.5 % (35.0-45.0); WHITE BLOOD COUNT 7.8 Th/cmm (4.8-10.8)
[2017-03-29 22:44] LABS: ALB/GLOB RATIO 1.3 (1.0-1.8); ALKALINE PHOSPHATASE 81 U/L (34-104); ANION GAP 9.6 (7.0-16.0); BILIRUBIN,TOTAL 0.3 mg/dL (0.3-1.0); BUN - UREA NITROGEN 20 mg/dL (7-25); CALCIUM SERUM 10.3 mg/dL (8.6-10.3); CARBON DIOXIDE 25.6 mEq/L (21.0-31.0); CHLORIDE 107 mEq/L (98-107); CREATININE - SERUM 0.8 mg/dL (0.6-1.2); GLUCOSE 81 mg/dL (70-105); POTASSIUM SERUM 4.2 mEq/L (3.5-5.1); SGOT 16 U/L (13-39); SGPT/ALT 20 U/L (7-52); SODIUM SERUM 138 mEq/L (136-145)
[2017-03-29 23:55] LABS: URINE BILIRUBIN NEGATIVE (NEGATIVE); URINE BLOOD NEGATIVE (NEGATIVE); URINE GLUCOSE (UA) NEGATIVE (NEGATIVE); URINE KETONE NEGATIVE (NEGATIVE); URINE PH 6.5 (4.6 - 8.0); URINE PROTEIN NEGATIVE (NEGATIVE); URINE UROBILINOGEN 0.2 E.U./dL (0.2 - 1.0)
[2017-03-29 23:59] LABS: URINE COLOR YELLOW
[2017-03-30] MEDS ORDERED: guaiFENesin 200 MG/10 ML UDC PO PRN (00:23)
[2017-03-30] MEDS ORDERED: Ipratropium Neb 0.5 mg/2.5 mL UD IH PRN (00:23)
[2017-03-30] MEDS ORDERED: Albuterol Nebulizer 2.5mg/3mL HHN PRN (00:23)
[2017-03-30] MEDS ORDERED: Pneumococcal Vaccine 0.5 mL Vial IM ONE (02:37)
[2017-03-30] MEDS: Levothyroxine 0.075 Mg Tab PO SCH (07:21)
--- NOTE | 2017-03-30 15:21 | Internal Medicine Prog Note ---
Internal Medicine Subjective - Subjective Service Date: 03/30/17 ([id number]) Internal Medicine Objective - Results Result Diagrams: 03/29/17 22:00 03/29/17 22:00 Recent Labs: Laboratory Last Values WBC 7.8 Th/cmm (4.8-10.8) D 03/29/17 22:00 RBC 4.39 Mil/cmm (3.80-5.10) 03/29/17 22:00 Hgb 13.7 gm/dL (11.7-15.5) 03/29/17 22:00 Hct 40.5 % (35.0-45.0) D 03/29/17 22:00 MCV 92.4 fl (81-100) 03/29/17 22:00 MCH 31.1 pg (27.0-31.0) H 03/29/17 22:00 MCHC Differential 33.7 pg (28.0-36.0) 03/29/17 22:00 RDW 13.9 % (11.5-20.0) 03/29/17 22:00 Plt Count 146 Th/cmm (150-400) L 03/29/17 22:00 MPV 9.5 fl 03/29/17 22:00 Neutrophils % 55.8 % (40.0-80.0) 03/29/17 22:00 Lymphocytes % 34.2 % (20.0-50.0) 03/29/17 22:00 Monocytes % 8.1 % (2.0-10.0) 03/29/17 22:00 Eosinophils % 1.8 % (0.0-5.0) 03/29/17 22:00 Basophils % 0.1 % (0.0-2.0) 03/29/17 22:00 Sodium 138 mEq/L (136-145) 03/29/17 22:00 Potassium 4.2 mEq/L (3.5-5.1) 03/29/17 22:00 Chloride 107 mEq/L (98-107) 03/29/17 22:00 Carbon Dioxide 25.6 mEq/L (21.0-31.0) 03/29/17 22:00 Anion Gap 9.6 (7.0-16.0) 03/29/17 22:00 BUN 20 mg/dL (7-25) 03/29/17 22:00 Creatinine 0.8 mg/dL (0.6-1.2) 03/29/17 22:00 Est GFR ( Amer) > 60.0 ml/min (>90) 03/29/17 22:00 Est GFR (Non-Af Amer) > 60.0 ml/min 03/29/17 22:00 BUN/Creatinine Ratio 25.0 03/29/17 22:00 Glucose 81 mg/dL (70-105) 03/29/17 22:00 Calcium 10.3 mg/dL (8.6-10.3) 03/29/17 22:00 Total Bilirubin 0.3 mg/dL (0.3-1.0) 03/29/17 22:00 AST 16 U/L (13-39) 03/29/17 22:00 ALT 20 U/L (7-52) 03/29/17 22:00 Alkaline Phosphatase 81 U/L (34-104) 03/29/17 22:00 Total Protein 6.1 gm/dL (6.0-8.3) 03/29/17 22:00 Albumin 3.4 gm/dL (3.7-5.3) L 03/29/17 22:00 Globulin 2.7 gm/dL 03/29/17 22:00 Albumin/Globulin Ratio 1.3 (1.0-1.8) 03/29/17 22:00 Urine Color YELLOW 03/29/17 23:20 Urine Clarity CLEAR (CLEAR) 03/29/17 23:20 Urine pH 6.5 (4.6 - 8.0) 03/29/17 23:20 Ur Specific [place] 1.010 (1.005-1.030) 03/29/17 23:20 Urine Protein NEGATIVE mg/dL (NEGATIVE) 03/29/17 23:20 Urine Glucose (UA) NEGATIVE mg/dL (NEGATIVE) 03/29/17 23:20 Urine Ketones NEGATIVE mg/dL (NEGATIVE) 03/29/17 23:20 Urine Blood NEGATIVE (NEGATIVE) 03/29/17 23:20 Urine Nitrate NEGATIVE (NEGATIVE) 03/29/17 23:20 Urine Bilirubin NEGATIVE (NEGATIVE) 03/29/17 23:20 Urine Urobilinogen 0.2 E.U./dL (0.2 - 1.0) 03/29/17 23:20 Ur Leukocyte Esterase NEGATIVE (NEGATIVE) 03/29/17 23:20 Stool Leukocyte NO WBC SEEN 03/29/17 23:20 - Physical Exam Vitals and I&O: Vital Signs Temp 97.4 F 03/30/17 12:00 Pulse 71 03/30/17 12:00 Resp 18 03/30/17 12:22 BP 118/68 03/30/17 12:00 Pulse Ox 96 03/30/17 12:00 Intake & Output 03/29/17 03/30/17 03/30/17 18:59 06:59 18:59 Weight (lbs) 277 lb Other: # Voids 2 # Bowel Movements 0 Stool Characteristics Liquid Active Medications: Current Medications Acetaminophen (Tylenol) 650 mg PO Q4H PRN PRN Reason: Pain Or Fever above 101 Stop: 05/29/17 00:22 Albuterol Sulfate (Albuterol 2.5mg/3ml Neb Ud) 2.5 mg HHN Q2HRT PRN PRN Reason: Shortness of Breath or Wheeze Stop: 05/29/17 00:22 Allopurinol (Zyloprim) 200 mg PO DAILY [facility] Stop: 05/29/17 08:59 Last Admin: 03/30/17 09:21 Dose: 200 mg Divalproex Sodium (Depakote Dr) 500 mg PO QAM REBECCA PRN Reason: Protocol Stop: 05/29/17 08:59 Last Admin: 03/30/17 09:20 Dose: 500 mg Divalproex Sodium (Depakote Dr) mg PO HS REBECCA PRN Reason: Protocol Stop: 05/29/17 20:59 Guaifenesin (Robitussin) 200 mg PO Q4HR PRN PRN Reason: Cough or Congestion Stop: 05/29/17 00:22 Heparin Sodium (Porcine) (Heparin) 5,000 units SUBQ Q12HR REBECCA Stop: 05/29/17 08:59 Last Admin: 03/30/17 09:21 Dose: 5,000 units Dextrose/Sodium Chloride (D5-0.45ns) 1,000 mls @ 80 mls/hr IV .[id number] REBECCA Stop: 05/29/17 00:29 Ipratropium [place] (Atrovent Neb 0.5mg/2.5ml) 0.5 mg IH Q2HRT PRN PRN Reason: Shortness of Breath or Wheeze Stop: 05/29/17 00:22 Lactobacillus Rhamnosus (Culturelle) 1 each PO DAILY REBECCA Stop: 05/29/17 12:14 Levothyroxine Sodium (Synthroid) 0.075 mg PO QDAC REBECCA Stop: 05/29/17 07:29 Last Admin: 03/30/17 07:21 Dose: 0.075 mg Loperamide HCl (Imodium) 2 mg PO Q4HR PRN PRN Reason: Diarrhea Stop: 05/29/17 00:22 Montelukast Sodium (Singulair) 10 mg PO DAILY REBECCA Stop: 05/29/17 08:59 Last Admin: 03/30/17 09:20 Dose: 10 mg Ondansetron HCl (Zofran) 4 mg IV Q8H PRN PRN Reason: Nausea / Vomiting Stop: 05/29/17 00:22 Quetiapine Fumarate (Seroquel) 300 mg PO HS REBECCA PRN Reason: Protocol Stop: 05/29/17 20:59 Simvastatin (Zocor) 20 mg PO HS REBECCA PRN Reason: Protocol Stop: 05/29/17 20:59 Temazepam (Restoril) 30 mg PO HS REBECCA Stop: 05/29/17 20:59 Theophylline (Carlos-Dur) 300 mg PO HS REBECCA Stop: 05/29/17 20:59 Zolpidem Tartrate (Ambien) 10 mg PO HS PRN PRN Reason: Insomnia Stop: 05/29/17 00:22 Internal Medicine Assmt/Plan - Assessment Assessment: abdominal pain diarrhea hyperlipidemia morbid obesity htn convulsion gout copd hypothyroidism
[2017-03-30] MEDS: Lactobacillus Rhamnosus 10 Billion CFU Capsule PO SCH (16:09)
--- NOTE | 2017-03-30 16:26 | History & Physical ---
ADMIT DATE: 03/30/2017 CHIEF COMPLAINT: Diarrhea. HISTORY OF PRESENT ILLNESS: This is a 56-year-old female who has a 3-day history of diarrhea. The patient states that she feels weak. The patient denies any fevers. The patient was recently discharged from the hospital 2 weeks ago for bilateral lower extremity swelling. PAST MEDICAL HISTORY: Gout, hypertension, CVA, dyslipidemia, anemia, hypothyroidism, hypokalemia, psychosis, convulsions, COPD. FAMILY HISTORY: Diabetes, hypertension. SOCIAL HISTORY: The patient is a resident of [facility]. PAST SURGICAL HISTORY: Unknown. REVIEW OF SYSTEMS: GENERAL: Denies any fevers and chills. CARDIOVASCULAR: Denies any chest pain. RESPIRATORY: Denies any shortness of breath. GASTROINTESTINAL: Complaints of diarrhea. Denies any abdominal pain. GENITOURINARY: Denies increased frequency or dysuria. All other systems are reviewed by me and are negative. PHYSICAL EXAMINATION: EXTREMITIES: The patient is morbidly obese, awake, alert, no apparent distress. VITAL SIGNS: Temperature 97.4, heart rate 71, blood pressure 118/68, respirations 19, O2 96%. HEENT: Head; normocephalic, atraumatic. NECK: Supple. No mass. LUNGS: Clear bilaterally. HEART: Regular rate and rhythm. ABDOMEN: Soft, nontender. LABORATORY DATA: WBC ____, H and H of 13.7 and 40.5, platelet 146. Sodium ____, potassium 4.2, chloride 107, BUN 20, creatinine 0.8. ASSESSMENT: 1. Abdominal pain. 2. Diarrhea. 3. Hyperlipidemia. 4. Morbid obesity. 5. Hypertension. 6. Generalized weakness. 7. Convulsion. 8. Gout. 9. Chronic obstructive pulmonary disease. 10. Hypothyroidism. PLAN: The patient to be admitted to the med/surg unit. We will keep the patient on IV fluids for hydration. We will get a GI consult. The patient will be kept on a full liquid diet. CT abdomen with contrast will be done. Stool culture will be sent also for C. diff. We will continue to monitor this patient. JOB# [id number]
[2017-03-30] MEDS: D5-0.45NS 1,000 ML IV SCH (18:29)
[2017-03-30 22:13] LABS: URINE BACTERIA NONE SEEN /hpf (NONE SEEN); URINE EPITHELIAL CELLS NONE SEEN /lpf (FEW); URINE RBC NONE SEEN /hpf (0-5); URINE WBC NONE SEEN /hpf (0-5)
[2017-03-30] MEDS: Theophylline 100 mg ER Tab PO SCH (22:22)
--- NOTE | 2017-03-30 23:59 | Admit Criteria Form ---
Admit Criteria Forms - Admit Criteria Diagnosis: GASTROENTEROLOGY GRG Clinical Indications for Admission to Inpatient Care (Place 'X' for any and all applicable criteria): Hospital admission is needed for appropriate care of the patient because of ANY ONE of the followin [ ]I. Hemoperitoneum(7) [ ]II. Ascites requiring acute treatment indicated by ANY ONE of the following( 8)(9): [ ]a) Hemodynamic instability remaining after emergency or observation level care (as appropriate) [ ]b) Peritoneal signs present (eg, abdominal rigidity, rebound tenderness, absent bowel sounds) [ ]c) Tachypnea, Hypoxemia, or other respiratory symptoms remain after emergency or observation level care (as appropriate) [ ]d) Suspected infected ascites as indicated by ANY ONE of the following: [ ]i) Temperature greater than 100 degrees F (37.8 degrees C) [ ]ii) Abdominal pain or tenderness not relieved by paracentesis [ ]iii) Systemic signs of infection (eg, elevated WBC count, fever) [ ]iv) Ascitic fluid analysis consistent with infection ( eg, elevated WBC count): [ ]v) Vital sign abnormality [ ]III. Suspected acute intra-abdominal process indicated by ANY ONE of the following(1)(2)(3)(4)(5): [ ]a) Hemodynamic instability [ ]b) Peritoneal signs present (eg, abdominal rigidity, rebound tenderness, absent bowel sounds) [ ]c) Bowel obstruction suspected (eg, severe vomiting, abdominal distension) [ ]d) Suspected mesenteric ischemia or ischemic colitis(6) [ ]e) Other signs or symptoms of acute abdominal disease (eg, severe pain, free air): [ ]IV. Severe liver disease indicated by ANY ONE of the following(8)(9)(10)(11)( 12)(13)(14): [ ]a) Acute hepatitis (eg, transaminase level greater than 1000 IU/L) [ ]b) Acute elevation of prothrombin time to more than 50% above normal or INR greater than 1.5 [ ]c) Bilirubin greater than 20 mg/dL (342 micromoles/L) (15) [ ]d) New-onset or worsening hepatic encephalopathy [ ]e) Acute liver necrosis [ ]f) Vomiting or dehydration that is severe of persistent [ ]g) Hemodynamic instability due to liver disease [ ]h) Acute renal failure [ ]i) Hepatic abscess [ ]j) Dehydration that is severe or persistent [ ]k) Hepatic hydrothorax(21) [ ]l) Other indications of severe liver disease (eg, persistent fever , ingestion of hepatotoxin) [X ]V. Severe diarrhea indicated by ANY ONE of the following(17)(18)(19)(20)(21) (22)(23): [ ]a) High fever or other high-risk infection situation [ ]b) Intractable bloody diarrhea (eg, more than 6 bloody stools per day) [ X]c) Suspected Clostridium difficile-associated diarrhea(24) [ ]d) Change in mental status that persists after emergency or observation level care (as appropriate) [ ]e) Severe dehydration (eg, greater than 9% loss of body weight in children) [ ]f) Inability to maintain hydration [ ]g) Peritoneal signs present (eg, abdominal rigidity, rebound tenderness, absent bowel sounds) [ ]h) Abdominal ischemia suspected(6) [ ]i) Hemodynamic instability that persists after emergency or observation level care (as appropriate) [ ]j) Severe electrolyte abnormalities requiring inpatient care [ ]k) Acute renal failure [ ]. Suspected toxic megacolon(5)(6) [ ]VII.Severe dysphagia indicated by ANY ONE of the following(25)(26): [ ]a) Suspected esophageal perforation or fistula(27) [ ]b) Suspected cause that requires inpatient care (eg, caustic ingestion, severe esophagitis) (28) [ ]c) Severe dehydration (eg, greater than 9% loss of body weight in children) [ ]d) Inability to manage secretions or maintain hydration [ ]e) Hemodynamic instability that persists after emergency or observation level care (as appropriate) [ ]f) Severe electrolyte abnormalities requiring inpatient care [ ]g) Acute renal failure [ ]VIII.Vomiting and ANY ONE of the following (29)(30)(31)(32): [ ]a) High fever or other high-risk infection situation [ ]b) Change in mental status that persists after emergency or observation level care (as appropriate) [ ]c) Severe dehydration (e.g., greater than 9% loss of body weight in children) [ ]d) Peritoneal signs present (e.g., abdominal rigidity, rebound tenderness, absent bowel sounds) [ ]e) Hemodynamic instability that persists after emergency or observation level care (as appropriate) [ ]f) Severe electrolyte abnormalities requiring inpatient care [ ]g) Acute renal failure [ ]h) Bowel obstruction suspected (e.g., severe vomiting, abdominal distension) [ ]i) Vomiting that is severe or persistent after medical treatment [ ]IX. Significant dehydration indicated by ANY ONE of the following(23)(24)(25) [ ]a) Clinical findings of severe dehydration indicated by ANY ONE of the following: [ ]i) Acute loss of weight from baseline (5% of body weight in adults, 9% in pediatric patients) [ ]ii) Hemodynamic instability [ ]iii) Acute renal failure [ ]iv) Serum sodium greater than 150 mEq/L (mmol/L) [ ]b) Dehydration that is persistent indicated by ALL of the following: [ ]i) Oral rehydration therapy not tolerated or insufficient to adequately correct dehydration [ ]ii) Appropriate intravenous treatment (eg, fluids) does not readily correct dehydration hours of (ie, after 12 to 24 of treatment) [ ]X. Gastroparesis and ANY ONE of the following(37)(38)(39): [ ]a) Dehydration that is severe or persistent [ ]b) Severe electrolyte abnormalities requiring inpatient care [ ]c) Acute renal failure [ ]d) Vomiting that is severe or persistent [ ]XI. Complications of transplanted liver indicated by ANY ONE of the following (40)(41): [ ]a) Acute graft rejection requiring inpatient management (eg, intravenous immunosuppression)(42) [ ]b) Failure of transplanted liver as indicated by ANY ONE of the following: [ ]i) Acute hepatitis (eg, transaminase level greater than 1000 International Units per liter (IU/L)) [ ]ii) Acute elevation of prothrombin time to more than 50% above baseline or INR greater than 1.5 [ ]iii) Bilirubin greater than 20 mg/dL (342 micromoles/L) [ ]iv) New-onset or worsening hepatic encephalopathy [ ]v) Acute elevation of serum ammonia level (eg, greater than 210 mcg/dL (150 micromoles/L)) [ ]vi) Acute liver necrosis [ ]c) Infection requiring inpatient management (eg, Hemodynamic instability, need for intravenous antimicrobial treatment)(43)(44)(45)(46)(47)(48)(49)(50) [ ]d) Other complication of transplanted liver (eg, thrombosis, autoimmune hepatitis, variceal bleeding) requiring inpatient management(51)(52) [ ]XII Complications of transplanted pancreas indicated by ANY ONE of the following(53): [ ]a) Acute graft rejection requiring inpatient management (eg, intravenous immunosuppression)(42)(54) [ ]b) Failure of transplanted pancreas as indicated by ANY ONE of the following: [ ]i) Serum amylase greater than 3 times the upper limit of normal or baseline [ ]ii) Serum lipase greater than 3 times the upper limit of normal or baseline [ ]iii) Imaging findings consistent with pancreatic inflammation or necrosis [ ]c) Infection requiring inpatient management (eg, Hemodynamic instability, need for intravenous antimicrobial treatment)(43)(44)(45)(46)(47)(48)(49)(50) [ ]d) Other complication of transplanted liver (eg, thrombosis, autoimmune hepatitis, variceal bleeding) requiring inpatient management(51)(52) [ ]X. Gastroenterology condition and ALL of the following: [ ]a) Symptom or finding for which emergency and observation care have failed or are not considered appropriate (Also use General Criteria: Observation Care as appropriate) [ ]b) Presence of ANY ONE of the following: [ ]i) A General Admission Criteria [ ]ii) A Pediatric General Admission Criteria. The original [facility] [employer] content created by [facility] has been revised. The portions of the content which have been revised are identified through the use of italic text or in bold,and [facility] has neither reviewed nor approved the modified material. All other unmodified content is copyright [facility] [employer] [facility]. Please see references footnoted in the original [facility] edition 2016 Admit Criteria Met?: Yes
--- NOTE | 2017-03-31 01:59 | Consultation ---
DATE OF CONSULTATION: 03/30/2017 REQUESTING PHYSICIAN: Dr. Helder De La O. REASON FOR CONSULTATION: Diarrhea and abdominal pain. HISTORY OF PRESENT ILLNESS: This is a 56-year-old female with history of obesity, hypothyroidism, hyperlipidemia, diabetes mellitus, hypertension, and recent admission for lower extremity cellulitis, admitted for a 1-day history of abdominal pain with diarrhea x 3 episodes. She was transferred here from nursing facility. She reports no further bleeding or abdominal pain. PAST MEDICAL HISTORY: As above. MEDICATIONS: Tylenol, albuterol, allopurinol, Depakote, Robitussin, subcutaneous heparin, Atrovent, Culturelle, Synthroid, Imodium, Singulair, Zofran, Seroquel, Zocor, Restoril, theophylline, and Ambien. ALLERGIES: No known drug allergies. SOCIAL HISTORY: No recent tobacco, alcohol, or drugs. detention resident. FAMILY HISTORY: Noncontributory. REVIEW OF SYSTEMS: As per history of present illness, otherwise unobtainable. PHYSICAL EXAMINATION: VITAL SIGNS: Temperature of 97.6, blood pressure is 121/71, pulse of 72, respirations 18, and O2 sats 97%. GENERAL: The patient is well-developed, well-nourished, obese female in no acute distress. HEENT: Sclerae nonicteric. Oropharynx is clear. CARDIOVASCULAR: Regular rate and rhythm. LUNGS: Clear to auscultation bilaterally. ABDOMEN: Soft, nontender, and nondistended. Large left-sided ventral hernia without obvious tenderness or evidence of bowel obstruction. EXTREMITIES: No clubbing, cyanosis, or edema. RECTAL: Deferred. LABORATORY DATA AND IMAGING: WBC 7.8, hemoglobin 13.7, and platelet count 146,000. Sodium 138, creatinine normal at 0.8. Urinalysis clear. Stool leukocyte is negative. IMPRESSION: 1. Diarrhea and abdominal pain, now improved. 2. History of ventral hernia without obvious bowel obstruction, rule out partial small-bowel obstruction versus ileus versus colitis. The patient reports having had a colonoscopy 2 years ago being negative. 3. History of obesity, hypothyroidism, hyperlipidemia, diabetes mellitus, hypertension, and lower extremity cellulitis. RECOMMENDATIONS: 1. We will obtain CT of the abdomen and pelvis. 2. Check stool studies if diarrhea persists. 3. Consider adding Flagyl and probiotics. 4. No need to repeat colonoscopy for now unless diarrhea persists and/or there is rectal bleeding. 5. Advanced diet as tolerated. [facility]# [id number] [facility]
[2017-03-31] MEDS: D5-0.45NS 1,000 ML IV SCH ×2 (04:45→17:27)
[2017-03-31 06:37] LABS: HEMOGLOBIN 13.6 gm/dL (11.7-15.5); MEAN CELL VOLUME 93.1 fl (81-100); MEAN CORPUSCULAR HEMOGLOBIN 30.9 pg (27.0-31.0); MEAN CORPUSCULAR HGB CONC 33.2 pg (28.0-36.0); MEAN PLATELET VOLUME 9.6 fl; PLATELET COUNT 141 Th/cmm (150-400)
[2017-03-31] MEDS: Levothyroxine 0.075 Mg Tab PO SCH (06:51)
[2017-03-31 07:07] LABS: WHITE BLOOD COUNT 5.4 Th/cmm (4.8-10.8)
[2017-03-31 07:23] LABS: ANION GAP 5.9 (7.0-16.0); BUN - UREA NITROGEN 12 mg/dL (7-25); CALCIUM SERUM 10.2 mg/dL (8.6-10.3); CARBON DIOXIDE 32.2 mEq/L (21.0-31.0); CHLORIDE 106 mEq/L (98-107); CREATININE - SERUM 0.6 mg/dL (0.6-1.2); GLUCOSE 79 mg/dL (70-105); POTASSIUM SERUM 4.1 mEq/L (3.5-5.1); SODIUM SERUM 140 mEq/L (136-145)
[2017-03-31] MEDS: Lactobacillus Rhamnosus 10 Billion CFU Capsule PO SCH (08:55)
[2017-03-31 09:41] LABS: EOSINOPHIL 3 % (0-5); NEUTROPHILS 28 % (40-80); PLATELET ESTIMATE ADEQUATE (NORMAL); PLATELET MORPHOLOGY NORMAL (NORMAL); TOTAL CELLS COUNTED 100
[2017-03-31] MEDS ORDERED: IOHEXOL 300MG/ML 100 ML VIAL IVP ONE (09:52)
--- NOTE | 2017-03-31 10:40 | Internal Medicine Prog Note ---
Internal Medicine Subjective - Subjective Service Date: 03/31/17 Patient seen and examined:: with staff Patient is:: awake Patient Complaints of:: diarrhea Per staff patient has:: tolerating meds Internal Medicine Objective - Results Result Diagrams: 03/31/17 05:56 03/31/17 05:56 Recent Labs: Laboratory Last Values WBC 5.4 Th/cmm (4.8-10.8) D 03/31/17 05:56 RBC 4.40 Mil/cmm (3.80-5.10) 03/31/17 05:56 Hgb 13.6 gm/dL (11.7-15.5) 03/31/17 05:56 Hct 41.0 % (35.0-45.0) 03/31/17 05:56 MCV 93.1 fl (81-100) 03/31/17 05:56 MCH 30.9 pg (27.0-31.0) 03/31/17 05:56 MCHC Differential 33.2 pg (28.0-36.0) 03/31/17 05:56 RDW 14.0 % (11.5-20.0) 03/31/17 05:56 Plt Count 141 Th/cmm (150-400) L 03/31/17 05:56 MPV 9.6 fl 03/31/17 05:56 Neutrophils % 55.8 % (40.0-80.0) 03/29/17 22:00 Lymphocytes % 34.2 % (20.0-50.0) 03/29/17 22:00 Monocytes % 8.1 % (2.0-10.0) 03/29/17 22:00 Eosinophils % 1.8 % (0.0-5.0) 03/29/17 22:00 Basophils % 0.1 % (0.0-2.0) 03/29/17 22:00 Neutrophils (Manual) 28 % (40-80) L 03/31/17 05:56 Lymphocytes 61 % (20-50) H 03/31/17 05:56 Monocytes 6 % (2-10) 03/31/17 05:56 Eosinophils 3 % (0-5) 03/31/17 05:56 Atypical Lymphocytes 2 % 03/31/17 05:56 Platelet Estimate ADEQUATE (NORMAL) 03/31/17 05:56 Platelet Morphology NORMAL (NORMAL) 03/31/17 05:56 RBC Morph Micro Appear NORMAL (NORMAL) 03/31/17 05:56 Sodium 140 mEq/L (136-145) 03/31/17 05:56 Potassium 4.1 mEq/L (3.5-5.1) 03/31/17 05:56 Chloride 106 mEq/L (98-107) 03/31/17 05:56 Carbon Dioxide 32.2 mEq/L (21.0-31.0) H 03/31/17 05:56 Anion Gap 5.9 (7.0-16.0) L 03/31/17 05:56 BUN 12 mg/dL (7-25) 03/31/17 05:56 Creatinine 0.6 mg/dL (0.6-1.2) 03/31/17 05:56 Est GFR ( Amer) > 60.0 ml/min (>90) 03/31/17 05:56 Est GFR (Non-Af Amer) > 60.0 ml/min 03/31/17 05:56 BUN/Creatinine Ratio 20.0 03/31/17 05:56 Glucose 79 mg/dL (70-105) 03/31/17 05:56 Calcium 10.2 mg/dL (8.6-10.3) 03/31/17 05:56 Total Bilirubin 0.3 mg/dL (0.3-1.0) 03/29/17 22:00 AST 16 U/L (13-39) 03/29/17 22:00 ALT 20 U/L (7-52) 03/29/17 22:00 Alkaline Phosphatase 81 U/L (34-104) 03/29/17 22:00 Total Protein 6.1 gm/dL (6.0-8.3) 03/29/17 22:00 Albumin 3.4 gm/dL (3.7-5.3) L 03/29/17 22:00 Globulin 2.7 gm/dL 03/29/17 22:00 Albumin/Globulin Ratio 1.3 (1.0-1.8) 03/29/17 22:00 Urine Source CATH 03/29/17 23:20 Urine Color YELLOW 03/29/17 23:20 Urine Clarity CLEAR (CLEAR) 03/29/17 23:20 Urine pH 6.5 (4.6 - 8.0) 03/29/17 23:20 Ur Specific [place] 1.010 (1.005-1.030) 03/29/17 23:20 Urine Protein NEGATIVE mg/dL (NEGATIVE) 03/29/17 23:20 Urine Glucose (UA) NEGATIVE mg/dL (NEGATIVE) 03/29/17 23:20 Urine Ketones NEGATIVE mg/dL (NEGATIVE) 03/29/17 23:20 Urine Blood NEGATIVE (NEGATIVE) 03/29/17 23:20 Urine Nitrate NEGATIVE (NEGATIVE) 03/29/17 23:20 Urine Bilirubin NEGATIVE (NEGATIVE) 03/29/17 23:20 Urine Urobilinogen 0.2 E.U./dL (0.2 - 1.0) 03/29/17 23:20 Ur Leukocyte Esterase NEGATIVE (NEGATIVE) 03/29/17 23:20 Urine RBC NONE SEEN /hpf (0-5) 03/29/17 23:20 Urine WBC NONE SEEN /hpf (0-5) 03/29/17 23:20 Ur Epithelial Cells NONE SEEN /lpf (FEW) 03/29/17 23:20 Urine Bacteria NONE SEEN /hpf (NONE SEEN) 03/29/17 23:20 Stool Leukocyte NO WBC SEEN 03/29/17 23:20 - Physical Exam Vitals and I&O: Vital Signs Temp 98.8 F 03/31/17 04:00 Pulse 62 03/31/17 04:00 Resp 18 03/31/17 04:00 BP 105/59 03/31/17 00:00 Pulse Ox 97 03/31/17 04:00 Intake & Output 03/30/17 03/31/17 03/31/17 18:59 06:59 18:59 Intake Total 2321.333 Balance 2321.333 Weight (lbs) 277 lb Intake: Intake, IV Amount 821.333 D5-0.45NS 1,000 ml @ 80 821.333 mls/hr IV .[id number] [facility] Rx #:[id number] Oral 1500 Other: # Voids 2 # Bowel Movements 0 Active Medications: Current Medications Acetaminophen (Tylenol) 650 mg PO Q4H PRN PRN Reason: Pain Or Fever above 101 Stop: 05/29/17 00:22 Albuterol Sulfate (Albuterol 2.5mg/3ml Neb Ud) 2.5 mg HHN Q2HRT PRN PRN Reason: Shortness of Breath or Wheeze Stop: 05/29/17 00:22 Allopurinol (Zyloprim) 200 mg PO DAILY [facility] Stop: 05/29/17 08:59 Last Admin: 03/31/17 08:53 Dose: Not Given Divalproex Sodium (Depakote Dr) 500 mg PO QAM [facility] PRN Reason: Protocol Stop: 05/29/17 08:59 Last Admin: 03/31/17 08:53 Dose: Not Given Divalproex Sodium (Depakote Dr) mg PO HS [facility] PRN Reason: Protocol Stop: 05/29/17 20:59 Guaifenesin (Robitussin) 200 mg PO Q4HR PRN PRN Reason: Cough or Congestion Stop: 05/29/17 00:22 Heparin Sodium (Porcine) (Heparin) 5,000 units SUBQ Q12HR [facility] Stop: 05/29/17 08:59 Last Admin: 03/31/17 09:25 Dose: 5,000 units Dextrose/Sodium Chloride (D5-0.45ns) 1,000 mls @ 80 mls/hr IV .[id number] [facility] Stop: 05/29/17 00:29 Last Admin: 03/31/17 04:45 Dose: 80 mls/hr Ipratropium [place] (Atrovent Neb 0.5mg/2.5ml) 0.5 mg IH Q2HRT PRN PRN Reason: Shortness of Breath or Wheeze Stop: 05/29/17 00:22 Lactobacillus Rhamnosus (Culturelle) 1 each PO DAILY [facility] Stop: 05/29/17 12:14 Last Admin: 03/31/17 08:55 Dose: Not Given Levothyroxine Sodium (Synthroid) 0.075 mg PO QDAC [facility] Stop: 05/29/17 07:29 Last Admin: 03/31/17 06:51 Dose: 0.075 mg Loperamide HCl (Imodium) 2 mg PO Q4HR PRN PRN Reason: Diarrhea Stop: 05/29/17 00:22 Montelukast Sodium (Singulair) 10 mg PO DAILY [facility] Stop: 05/29/17 08:59 Last Admin: 03/31/17 08:54 Dose: Not Given Ondansetron HCl (Zofran) 4 mg IV Q8H PRN PRN Reason: Nausea / Vomiting Stop: 05/29/17 00:22 Quetiapine Fumarate (Seroquel) 300 mg PO HS [facility] PRN Reason: Protocol Stop: 05/29/17 20:59 Last Admin: 03/30/17 22:01 Dose: 300 mg Simvastatin (Zocor) 20 mg PO HS [facility] PRN Reason: Protocol Stop: 05/29/17 20:59 Last Admin: 03/30/17 22:00 Dose: 20 mg Temazepam (Restoril) 30 mg PO HS [facility] Stop: 05/29/17 20:59 Last Admin: 03/30/17 22:00 Dose: 30 mg Theophylline (Carlos-Dur) 300 mg PO HS [facility] Stop: 05/29/17 20:59 Last Admin: 03/30/17 22:22 Dose: 300 mg Zolpidem Tartrate (Ambien) 10 mg PO HS PRN PRN Reason: Insomnia Stop: 05/29/17 00:22 General: alert HEENT: NC/AT, PERRLA Neck: Supple Cardiovascular: RRR, Normal S1, Normal S2, without murmur Abdomen: soft, non-tender, non-distended, positive bowel sound Neurological: alert Internal Medicine Assmt/Plan - Assessment Assessment: abdominal pain diarrhea hyperlipidemia morbid obesity htn convulsion gout copd hypothyroidism - Plan Plan: CT ABD TODAY EMPIRIC IVABX AM LABS IVF FOR HYDRATION
--- NOTE | 2017-03-31 12:49 | Diagnostic Imaging Report ---
Exam: CT examination abdomen pelvis history: Abdominal pain diarrhea colitis Total DLP equals 864 CTDI equals 16.4 No prior studies available for comparison Findings: Multiple contiguous thin section of the abdomen pelvis obtained from lower thorax with administration of the intravenous contrast material oral contrast was not utilized. Mediastinal structures midline. The lung parenchyma is well aerated there is evidence of pleural thickening is no pleural effusions. The liver parenchyma spleen are normal. The kidneys demonstrate no evidence of obstructive uropathy or nephrolithiasis. The adrenal glands intact. The pancreas is normal. The gallbladder is intact. Calcification of abdominal aorta appreciated. There is evidence for massive midline the left abdominal hernia with herniation of large and small bowel content in the hernia sac including the mesentery. There is no evidence of strangulation. Extensive fusion of the lower lumbar cervical spine appreciated casting intense artifacts. No free fluid is noted. There is no evidence of diverticular process of diverticulitis. The uterus is intact. Bony structures demonstrate no evidence for lytic or blastic changes. Incidentally noted large amount of fecal content throughout the colon. Inferior vena cava filter is noted. IMPRESSION: 1. Massive anterior lower abdominal hernia with herniation of small and large bowel loops into the hernia sac without strangulation. 2. Bilateral pleural effusions basilar atelectasis. 3. Clinical correlation surgical consult is recommended.
[2017-03-31] MEDS: Theophylline 100 mg ER Tab PO SCH (21:00)
[2017-04-01 06:34] LABS: HEMATOCRIT 40.9 % (35.0-45.0); HEMOGLOBIN 13.6 gm/dL (11.7-15.5); MEAN CELL VOLUME 93.3 fl (81-100); MEAN CORPUSCULAR HEMOGLOBIN 30.9 pg (27.0-31.0); MEAN CORPUSCULAR HGB CONC 33.2 pg (28.0-36.0); PLATELET COUNT 129 Th/cmm (150-400); RED BLOOD COUNT 4.38 Mil/cmm (3.80-5.10); RED CELL DISTRIBUTION WIDTH 13.8 % (11.5-20.0); WHITE BLOOD COUNT 5.2 Th/cmm (4.8-10.8)
[2017-04-01] MEDS: D5-0.45NS 1,000 ML IV SCH (06:41)
[2017-04-01] MEDS: Levothyroxine 0.075 Mg Tab PO SCH (06:43)
[2017-04-01 06:59] LABS: ANION GAP 6.3 (7.0-16.0); BUN - UREA NITROGEN 10 mg/dL (7-25); BUN/CREATININE RATIO 16.7; CALCIUM SERUM 9.9 mg/dL (8.6-10.3); CARBON DIOXIDE 31.8 mEq/L (21.0-31.0); CHLORIDE 106 mEq/L (98-107); CREATININE - SERUM 0.6 mg/dL (0.6-1.2); GLUCOSE 80 mg/dL (70-105); POTASSIUM SERUM 4.1 mEq/L (3.5-5.1); SODIUM SERUM 140 mEq/L (136-145)
[2017-04-01] MEDS: Lactobacillus Rhamnosus 10 Billion CFU Capsule PO SCH (08:13)
[2017-04-01 09:03] LABS: BAND NEUTROPHILE 0 % (0-10); NEUTROPHILS 32 % (40-80); PLATELET ESTIMATE ADEQUATE (NORMAL); TOTAL CELLS COUNTED 100
--- NOTE | 2017-04-01 12:53 | General Progress Note ---
Subjective - Review of Systems Service Date: 04/01/17 Events since last encounter: chart reviewed, ptient examined not able to give meaningful info, no family no diarrhea today CT scan noted PE - large ventral hernia with bowel (no previous surgery), not tender repair with mesh will have high percentage of recurrence due to obesity Objective - Results Result Diagrams: 04/01/17 06:04 04/01/17 06:04 Recent Labs: Laboratory Last Values WBC 5.2 Th/cmm (4.8-10.8) 04/01/17 06:04 RBC 4.38 Mil/cmm (3.80-5.10) 04/01/17 06:04 Hgb 13.6 gm/dL (11.7-15.5) 04/01/17 06:04 Hct 40.9 % (35.0-45.0) 04/01/17 06:04 MCV 93.3 fl (81-100) 04/01/17 06:04 MCH 30.9 pg (27.0-31.0) 04/01/17 06:04 MCHC Differential 33.2 pg (28.0-36.0) 04/01/17 06:04 RDW 13.8 % (11.5-20.0) 04/01/17 06:04 Plt Count 129 Th/cmm (150-400) L 04/01/17 06:04 MPV 10.0 fl 04/01/17 06:04 Neutrophils % 55.8 % (40.0-80.0) 03/29/17 22:00 Band Neutrophils % 0 % (0-10) 04/01/17 06:04 Lymphocytes % 34.2 % (20.0-50.0) 03/29/17 22:00 Monocytes % 8.1 % (2.0-10.0) 03/29/17 22:00 Eosinophils % 1.8 % (0.0-5.0) 03/29/17 22:00 Basophils % 0.1 % (0.0-2.0) 03/29/17 22:00 Neutrophils (Manual) 32 % (40-80) L 04/01/17 06:04 Lymphocytes 52 % (20-50) H 04/01/17 06:04 Monocytes 16 % (2-10) H 04/01/17 06:04 Eosinophils 3 % (0-5) 03/31/17 05:56 Atypical Lymphocytes 2 % 03/31/17 05:56 Platelet Estimate ADEQUATE (NORMAL) 04/01/17 06:04 Platelet Morphology NORMAL (NORMAL) 03/31/17 05:56 RBC Morph Micro Appear NORMAL (NORMAL) 03/31/17 05:56 Sodium 140 mEq/L (136-145) 04/01/17 06:04 Potassium 4.1 mEq/L (3.5-5.1) 04/01/17 06:04 Chloride 106 mEq/L (98-107) 04/01/17 06:04 Carbon Dioxide 31.8 mEq/L (21.0-31.0) H 04/01/17 06:04 Anion Gap 6.3 (7.0-16.0) L 04/01/17 06:04 BUN 10 mg/dL (7-25) 04/01/17 06:04 Creatinine 0.6 mg/dL (0.6-1.2) 04/01/17 06:04 Est GFR ( Amer) > 60.0 ml/min (>90) 04/01/17 06:04 Est GFR (Non-Af Amer) > 60.0 ml/min 04/01/17 06:04 BUN/Creatinine Ratio 16.7 04/01/17 06:04 Glucose 80 mg/dL (70-105) 04/01/17 06:04 Calcium 9.9 mg/dL (8.6-10.3) 04/01/17 06:04 Total Bilirubin 0.3 mg/dL (0.3-1.0) 03/29/17 22:00 AST 16 U/L (13-39) 03/29/17 22:00 ALT 20 U/L (7-52) 03/29/17 22:00 Alkaline Phosphatase 81 U/L (34-104) 03/29/17 22:00 Total Protein 6.1 gm/dL (6.0-8.3) 03/29/17 22:00 Albumin 3.4 gm/dL (3.7-5.3) L 03/29/17 22:00 Globulin 2.7 gm/dL 03/29/17 22:00 Albumin/Globulin Ratio 1.3 (1.0-1.8) 03/29/17 22:00 Urine Source CATH 03/29/17 23:20 Urine Color YELLOW 03/29/17 23:20 Urine Clarity CLEAR (CLEAR) 03/29/17 23:20 Urine pH 6.5 (4.6 - 8.0) 03/29/17 23:20 Ur Specific [place] 1.010 (1.005-1.030) 03/29/17 23:20 Urine Protein NEGATIVE mg/dL (NEGATIVE) 03/29/17 23:20 Urine Glucose (UA) NEGATIVE mg/dL (NEGATIVE) 03/29/17 23:20 Urine Ketones NEGATIVE mg/dL (NEGATIVE) 03/29/17 23:20 Urine Blood NEGATIVE (NEGATIVE) 03/29/17 23:20 Urine Nitrate NEGATIVE (NEGATIVE) 03/29/17 23:20 Urine Bilirubin NEGATIVE (NEGATIVE) 03/29/17 23:20 Urine Urobilinogen 0.2 E.U./dL (0.2 - 1.0) 03/29/17 23:20 Ur Leukocyte Esterase NEGATIVE (NEGATIVE) 03/29/17 23:20 Urine RBC NONE SEEN /hpf (0-5) 03/29/17 23:20 Urine WBC NONE SEEN /hpf (0-5) 03/29/17 23:20 Ur Epithelial Cells NONE SEEN /lpf (FEW) 03/29/17 23:20 Urine Bacteria NONE SEEN /hpf (NONE SEEN) 03/29/17 23:20 Stool Leukocyte NO WBC SEEN 03/29/17 23:20 - Physical Exam Vitals and I&O: Vital Signs Temp 97 F 04/01/17 12:10 Pulse 70 04/01/17 12:10 Resp 18 04/01/17 12:10 BP 123/71 04/01/17 12:00 Pulse Ox 94 04/01/17 12:10 Intake & Output 03/31/17 04/01/17 04/01/17 18:59 06:59 18:59 Intake Total 1000 1350 Balance 1000 1350 Weight (lbs) 125.736 kg Intake: Intake, IV Amount 1000 1000 D5-0.45NS 1,000 ml @ 80 1000 1000 mls/hr IV .[id number] [facility] Rx #:[id number] Oral 350 Other: # Voids 3 # Bowel Movements 0 Active Medications: Current Medications Acetaminophen (Tylenol) 650 mg PO Q4H PRN PRN Reason: Pain Or Fever above 101 Stop: 05/29/17 00:22 Albuterol Sulfate (Albuterol 2.5mg/3ml Neb Ud) 2.5 mg HHN Q2HRT PRN PRN Reason: Shortness of Breath or Wheeze Stop: 05/29/17 00:22 Allopurinol (Zyloprim) 200 mg PO DAILY [facility] Stop: 05/29/17 08:59 Last Admin: 04/01/17 08:13 Dose: 200 mg Divalproex Sodium (Depakote Dr) 500 mg PO QAM [facility] PRN Reason: Protocol Stop: 05/29/17 08:59 Last Admin: 04/01/17 08:13 Dose: 500 mg Divalproex Sodium (Depakote Dr) 1,000 mg PO HS [facility] PRN Reason: Protocol Stop: 05/29/17 20:59 Guaifenesin (Robitussin) 200 mg PO Q4HR PRN PRN Reason: Cough or Congestion Stop: 05/29/17 00:22 Heparin Sodium (Porcine) (Heparin) 5,000 units SUBQ Q12HR [facility] Stop: 05/29/17 08:59 Last Admin: 04/01/17 08:12 Dose: 5,000 units Dextrose/Sodium Chloride (D5-0.45ns) 1,000 mls @ 80 mls/hr IV .[id number] [facility] Stop: 05/29/17 00:29 Last Admin: 04/01/17 06:41 Dose: 80 mls/hr Ipratropium [place] (Atrovent Neb 0.5mg/2.5ml) 0.5 mg IH Q2HRT PRN PRN Reason: Shortness of Breath or Wheeze Stop: 05/29/17 00:22 Lactobacillus Rhamnosus (Culturelle) 1 each PO DAILY [facility] Stop: 05/29/17 12:14 Last Admin: 04/01/17 08:13 Dose: 1 each Levothyroxine Sodium (Synthroid) 0.075 mg PO QDAC [facility] Stop: 05/29/17 07:29 Last Admin: 04/01/17 06:43 Dose: 0.075 mg Loperamide HCl (Imodium) 2 mg PO Q4HR PRN PRN Reason: Diarrhea Stop: 05/29/17 00:22 Montelukast Sodium (Singulair) 10 mg PO DAILY [facility] Stop: 05/29/17 08:59 Last Admin: 04/01/17 08:13 Dose: 10 mg Ondansetron HCl (Zofran) 4 mg IV Q8H PRN PRN Reason: Nausea / Vomiting Stop: 05/29/17 00:22 Quetiapine Fumarate (Seroquel) 300 mg PO HS [facility] PRN Reason: Protocol Stop: 05/29/17 20:59 Last Admin: 03/31/17 20:56 Dose: 300 mg Simvastatin (Zocor) 20 mg PO HS [facility] PRN Reason: Protocol Stop: 05/29/17 20:59 Last Admin: 03/31/17 20:56 Dose: 20 mg Temazepam (Restoril) 30 mg PO HS [facility] Stop: 05/29/17 20:59 Last Admin: 03/31/17 20:56 Dose: 30 mg Theophylline (Carlos-Dur) 300 mg PO HS [facility] Stop: 05/29/17 20:59 Last Admin: 03/31/17 21:00 Dose: 300 mg Zolpidem Tartrate (Ambien) 10 mg PO HS PRN PRN Reason: Insomnia Stop: 05/29/17 00:22
--- NOTE | 2017-04-01 15:04 | Internal Medicine Prog Note ---
Internal Medicine Subjective - Subjective Service Date: 04/01/17 (denies abdominal pain) Patient is:: awake Patient Complaints of:: diarrhea (resolved ) Per staff patient has:: tolerating meds Internal Medicine Objective - Results Result Diagrams: 04/01/17 06:04 04/01/17 06:04 Recent Labs: Laboratory Last Values WBC 5.2 Th/cmm (4.8-10.8) 04/01/17 06:04 RBC 4.38 Mil/cmm (3.80-5.10) 04/01/17 06:04 Hgb 13.6 gm/dL (11.7-15.5) 04/01/17 06:04 Hct 40.9 % (35.0-45.0) 04/01/17 06:04 MCV 93.3 fl (81-100) 04/01/17 06:04 MCH 30.9 pg (27.0-31.0) 04/01/17 06:04 MCHC Differential 33.2 pg (28.0-36.0) 04/01/17 06:04 RDW 13.8 % (11.5-20.0) 04/01/17 06:04 Plt Count 129 Th/cmm (150-400) L 04/01/17 06:04 MPV 10.0 fl 04/01/17 06:04 Neutrophils % 55.8 % (40.0-80.0) 03/29/17 22:00 Band Neutrophils % 0 % (0-10) 04/01/17 06:04 Lymphocytes % 34.2 % (20.0-50.0) 03/29/17 22:00 Monocytes % 8.1 % (2.0-10.0) 03/29/17 22:00 Eosinophils % 1.8 % (0.0-5.0) 03/29/17 22:00 Basophils % 0.1 % (0.0-2.0) 03/29/17 22:00 Neutrophils (Manual) 32 % (40-80) L 04/01/17 06:04 Lymphocytes 52 % (20-50) H 04/01/17 06:04 Monocytes 16 % (2-10) H 04/01/17 06:04 Eosinophils 3 % (0-5) 03/31/17 05:56 Atypical Lymphocytes 2 % 03/31/17 05:56 Platelet Estimate ADEQUATE (NORMAL) 04/01/17 06:04 Platelet Morphology NORMAL (NORMAL) 03/31/17 05:56 RBC Morph Micro Appear NORMAL (NORMAL) 03/31/17 05:56 Sodium 140 mEq/L (136-145) 04/01/17 06:04 Potassium 4.1 mEq/L (3.5-5.1) 04/01/17 06:04 Chloride 106 mEq/L (98-107) 04/01/17 06:04 Carbon Dioxide 31.8 mEq/L (21.0-31.0) H 04/01/17 06:04 Anion Gap 6.3 (7.0-16.0) L 04/01/17 06:04 BUN 10 mg/dL (7-25) 04/01/17 06:04 Creatinine 0.6 mg/dL (0.6-1.2) 04/01/17 06:04 Est GFR ( Amer) > 60.0 ml/min (>90) 04/01/17 06:04 Est GFR (Non-Af Amer) > 60.0 ml/min 04/01/17 06:04 BUN/Creatinine Ratio 16.7 04/01/17 06:04 Glucose 80 mg/dL (70-105) 04/01/17 06:04 Calcium 9.9 mg/dL (8.6-10.3) 04/01/17 06:04 Total Bilirubin 0.3 mg/dL (0.3-1.0) 03/29/17 22:00 AST 16 U/L (13-39) 03/29/17 22:00 ALT 20 U/L (7-52) 03/29/17 22:00 Alkaline Phosphatase 81 U/L (34-104) 03/29/17 22:00 Total Protein 6.1 gm/dL (6.0-8.3) 03/29/17 22:00 Albumin 3.4 gm/dL (3.7-5.3) L 03/29/17 22:00 Globulin 2.7 gm/dL 03/29/17 22:00 Albumin/Globulin Ratio 1.3 (1.0-1.8) 03/29/17 22:00 Urine Source CATH 03/29/17 23:20 Urine Color YELLOW 03/29/17 23:20 Urine Clarity CLEAR (CLEAR) 03/29/17 23:20 Urine pH 6.5 (4.6 - 8.0) 03/29/17 23:20 Ur Specific [place] 1.010 (1.005-1.030) 03/29/17 23:20 Urine Protein NEGATIVE mg/dL (NEGATIVE) 03/29/17 23:20 Urine Glucose (UA) NEGATIVE mg/dL (NEGATIVE) 03/29/17 23:20 Urine Ketones NEGATIVE mg/dL (NEGATIVE) 03/29/17 23:20 Urine Blood NEGATIVE (NEGATIVE) 03/29/17 23:20 Urine Nitrate NEGATIVE (NEGATIVE) 03/29/17 23:20 Urine Bilirubin NEGATIVE (NEGATIVE) 03/29/17 23:20 Urine Urobilinogen 0.2 E.U./dL (0.2 - 1.0) 03/29/17 23:20 Ur Leukocyte Esterase NEGATIVE (NEGATIVE) 03/29/17 23:20 Urine RBC NONE SEEN /hpf (0-5) 03/29/17 23:20 Urine WBC NONE SEEN /hpf (0-5) 03/29/17 23:20 Ur Epithelial Cells NONE SEEN /lpf (FEW) 03/29/17 23:20 Urine Bacteria NONE SEEN /hpf (NONE SEEN) 03/29/17 23:20 Stool Leukocyte NO WBC SEEN 03/29/17 23:20 - Physical Exam Vitals and I&O: Vital Signs Temp 97 F 04/01/17 12:10 Pulse 70 04/01/17 12:10 Resp 18 04/01/17 12:10 BP 126/85 04/01/17 12:10 Pulse Ox 94 04/01/17 12:10 Intake & Output 03/31/17 04/01/17 04/01/17 18:59 06:59 18:59 Intake Total 1000 1350 Balance 1000 1350 Weight (lbs) 277 lb 3.2 oz Intake: Intake, IV Amount 1000 1000 D5-0.45NS 1,000 ml @ 80 1000 1000 mls/hr IV .[id number] [facility] Rx #:[id number] Oral 350 Other: # Voids 3 # Bowel Movements 0 Active Medications: Current Medications Acetaminophen (Tylenol) 650 mg PO Q4H PRN PRN Reason: Pain Or Fever above 101 Stop: 05/29/17 00:22 Albuterol Sulfate (Albuterol 2.5mg/3ml Neb Ud) 2.5 mg HHN Q2HRT PRN PRN Reason: Shortness of Breath or Wheeze Stop: 05/29/17 00:22 Allopurinol (Zyloprim) 200 mg PO DAILY [facility] Stop: 05/29/17 08:59 Last Admin: 04/01/17 08:13 Dose: 200 mg Divalproex Sodium (Depakote Dr) 500 mg PO QAM [facility] PRN Reason: Protocol Stop: 05/29/17 08:59 Last Admin: 04/01/17 08:13 Dose: 500 mg Divalproex Sodium (Depakote Dr) 1,000 mg PO HS [facility] PRN Reason: Protocol Stop: 05/29/17 20:59 Guaifenesin (Robitussin) 200 mg PO Q4HR PRN PRN Reason: Cough or Congestion Stop: 05/29/17 00:22 Heparin Sodium (Porcine) (Heparin) 5,000 units SUBQ Q12HR [facility] Stop: 05/29/17 08:59 Last Admin: 04/01/17 08:12 Dose: 5,000 units Dextrose/Sodium Chloride (D5-0.45ns) 1,000 mls @ 80 mls/hr IV .[id number] [facility] Stop: 05/29/17 00:29 Last Admin: 04/01/17 06:41 Dose: 80 mls/hr Ipratropium [place] (Atrovent Neb 0.5mg/2.5ml) 0.5 mg IH Q2HRT PRN PRN Reason: Shortness of Breath or Wheeze Stop: 05/29/17 00:22 Lactobacillus Rhamnosus (Culturelle) 1 each PO DAILY [facility] Stop: 05/29/17 12:14 Last Admin: 04/01/17 08:13 Dose: 1 each Levothyroxine Sodium (Synthroid) 0.075 mg PO QDAC [facility] Stop: 05/29/17 07:29 Last Admin: 04/01/17 06:43 Dose: 0.075 mg Loperamide HCl (Imodium) 2 mg PO Q4HR PRN PRN Reason: Diarrhea Stop: 05/29/17 00:22 Montelukast Sodium (Singulair) 10 mg PO DAILY [facility] Stop: 05/29/17 08:59 Last Admin: 04/01/17 08:13 Dose: 10 mg Ondansetron HCl (Zofran) 4 mg IV Q8H PRN PRN Reason: Nausea / Vomiting Stop: 05/29/17 00:22 Quetiapine Fumarate (Seroquel) 300 mg PO HS [facility] PRN Reason: Protocol Stop: 05/29/17 20:59 Last Admin: 03/31/17 20:56 Dose: 300 mg Simvastatin (Zocor) 20 mg PO HS [facility] PRN Reason: Protocol Stop: 05/29/17 20:59 Last Admin: 03/31/17 20:56 Dose: 20 mg Temazepam (Restoril) 30 mg PO HS [facility] Stop: 05/29/17 20:59 Last Admin: 03/31/17 20:56 Dose: 30 mg Theophylline (Carlos-Dur) 300 mg PO HS [facility] Stop: 05/29/17 20:59 Last Admin: 03/31/17 21:00 Dose: 300 mg Zolpidem Tartrate (Ambien) 10 mg PO HS PRN PRN Reason: Insomnia Stop: 05/29/17 00:22 General: alert HEENT: NC/AT, PERRLA Neck: Supple Cardiovascular: RRR, Normal S1, Normal S2, without murmur Abdomen: soft, non-tender, non-distended, positive bowel sound Neurological: alert Internal Medicine Assmt/Plan - Assessment Assessment: abdominal pain- resolved diarrhea- resolved hyperlipidemia morbid obesity htn convulsion gout copd hypothyroidism - Plan Plan: dc planning in am EMPIRIC IVABX AM LABS IVF FOR HYDRATION
[2017-04-01] MEDS: Theophylline 100 mg ER Tab PO SCH (20:57)
--- NOTE | 2017-04-02 04:54 | Progress Notes ---
DATE: 04/01/2017 SUBJECTIVE: Events noted. Reports normal diarrhea, tolerating liquid diet. OBJECTIVE: VITAL SIGNS: Noted. GENERAL: The patient is well-developed, well-nourished female in no acute distress. CARDIOVASCULAR: Regular rate and rhythm. ABDOMEN: Soft, obese habitus, large ventral hernia. EXTREMITIES: No edema. LABORATORY/IMAGING DATA: CT of the abdomen done yesterday showed a massive anterior lower abdominal hernia with herniation of small and large bowel loops into the hernia sac without strangulation. Bilateral pleural effusions were also identified. Complete blood count today is normal except for a platelet count of 129, creatinine is normal. Liver enzymes on admission were normal. Urinalysis is clear. IMPRESSION: 1.Diarrhea, now resolved, may have been from acute gastroenteritis of viral etiology. 2.Large ventral hernia without strangulation. 3.Obesity. RECOMMENDATIONS: 1.Advance diet as tolerated. 2.Surgical opinion, recommend nonoperative management. 3.Endoscopic management for now. The patient last had a colonoscopy 2 years ago, which was reportedly negative. JOB# [id number]
[2017-04-02] MEDS: D5-0.45NS 1,000 ML IV SCH ×2 (05:40→18:29)
[2017-04-02 05:56] LABS: HEMATOCRIT 39.2 % (35.0-45.0); HEMOGLOBIN 13.2 gm/dL (11.7-15.5); MEAN CELL VOLUME 91.7 fl (81-100); MEAN CORPUSCULAR HEMOGLOBIN 30.8 pg (27.0-31.0); MEAN CORPUSCULAR HGB CONC 33.6 pg (28.0-36.0); MEAN PLATELET VOLUME 9.6 fl; PLATELET COUNT 140 Th/cmm (150-400); RED BLOOD COUNT 4.28 Mil/cmm (3.80-5.10); RED CELL DISTRIBUTION WIDTH 13.5 % (11.5-20.0); WHITE BLOOD COUNT 5.6 Th/cmm (4.8-10.8)
[2017-04-02] MEDS: Levothyroxine 0.075 Mg Tab PO SCH (07:07)
[2017-04-02 07:55] LABS: ANION GAP 5.4 (7.0-16.0); BUN - UREA NITROGEN 14 mg/dL (7-25); CALCIUM SERUM 9.6 mg/dL (8.6-10.3); CARBON DIOXIDE 31.8 mEq/L (21.0-31.0); CHLORIDE 106 mEq/L (98-107); CREATININE - SERUM 0.7 mg/dL (0.6-1.2); GLUCOSE 114 mg/dL (70-105); POTASSIUM SERUM 4.2 mEq/L (3.5-5.1); SODIUM SERUM 139 mEq/L (136-145)
--- NOTE | 2017-04-02 08:49 | Internal Medicine Prog Note ---
Internal Medicine Subjective - Subjective Service Date: 04/02/17 Patient is:: awake Patient Complaints of:: diarrhea (resolved ) Per staff patient has:: tolerating meds Internal Medicine Objective - Results Result Diagrams: 04/02/17 05:32 04/02/17 05:32 Recent Labs: Laboratory Last Values WBC 5.6 Th/cmm (4.8-10.8) 04/02/17 05:32 RBC 4.28 Mil/cmm (3.80-5.10) 04/02/17 05:32 Hgb 13.2 gm/dL (11.7-15.5) 04/02/17 05:32 Hct 39.2 % (35.0-45.0) 04/02/17 05:32 MCV 91.7 fl (81-100) 04/02/17 05:32 MCH 30.8 pg (27.0-31.0) 04/02/17 05:32 MCHC Differential 33.6 pg (28.0-36.0) 04/02/17 05:32 RDW 13.5 % (11.5-20.0) 04/02/17 05:32 Plt Count 140 Th/cmm (150-400) L 04/02/17 05:32 MPV 9.6 fl 04/02/17 05:32 Neutrophils % 55.8 % (40.0-80.0) 03/29/17 22:00 Band Neutrophils % 0 % (0-10) 04/01/17 06:04 Lymphocytes % 34.2 % (20.0-50.0) 03/29/17 22:00 Monocytes % 8.1 % (2.0-10.0) 03/29/17 22:00 Eosinophils % 1.8 % (0.0-5.0) 03/29/17 22:00 Basophils % 0.1 % (0.0-2.0) 03/29/17 22:00 Neutrophils (Manual) 32 % (40-80) L 04/01/17 06:04 Lymphocytes 52 % (20-50) H 04/01/17 06:04 Monocytes 16 % (2-10) H 04/01/17 06:04 Eosinophils 3 % (0-5) 03/31/17 05:56 Atypical Lymphocytes 2 % 03/31/17 05:56 Platelet Estimate ADEQUATE (NORMAL) 04/01/17 06:04 Platelet Morphology NORMAL (NORMAL) 03/31/17 05:56 RBC Morph Micro Appear NORMAL (NORMAL) 03/31/17 05:56 Sodium 139 mEq/L (136-145) 04/02/17 05:32 Potassium 4.2 mEq/L (3.5-5.1) 04/02/17 05:32 Chloride 106 mEq/L (98-107) 04/02/17 05:32 Carbon Dioxide 31.8 mEq/L (21.0-31.0) H 04/02/17 05:32 Anion Gap 5.4 (7.0-16.0) L 04/02/17 05:32 BUN 14 mg/dL (7-25) 04/02/17 05:32 Creatinine 0.7 mg/dL (0.6-1.2) 04/02/17 05:32 Est GFR ( Amer) > 60.0 ml/min (>90) 04/02/17 05:32 Est GFR (Non-Af Amer) > 60.0 ml/min 04/02/17 05:32 BUN/Creatinine Ratio 20.0 04/02/17 05:32 Glucose 114 mg/dL (70-105) H 04/02/17 05:32 Calcium 9.6 mg/dL (8.6-10.3) 04/02/17 05:32 Total Bilirubin 0.3 mg/dL (0.3-1.0) 03/29/17 22:00 AST 16 U/L (13-39) 03/29/17 22:00 ALT 20 U/L (7-52) 03/29/17 22:00 Alkaline Phosphatase 81 U/L (34-104) 03/29/17 22:00 Total Protein 6.1 gm/dL (6.0-8.3) 03/29/17 22:00 Albumin 3.4 gm/dL (3.7-5.3) L 03/29/17 22:00 Globulin 2.7 gm/dL 03/29/17 22:00 Albumin/Globulin Ratio 1.3 (1.0-1.8) 03/29/17 22:00 Urine Source CATH 03/29/17 23:20 Urine Color YELLOW 03/29/17 23:20 Urine Clarity CLEAR (CLEAR) 03/29/17 23:20 Urine pH 6.5 (4.6 - 8.0) 03/29/17 23:20 Ur Specific [place] 1.010 (1.005-1.030) 03/29/17 23:20 Urine Protein NEGATIVE mg/dL (NEGATIVE) 03/29/17 23:20 Urine Glucose (UA) NEGATIVE mg/dL (NEGATIVE) 03/29/17 23:20 Urine Ketones NEGATIVE mg/dL (NEGATIVE) 03/29/17 23:20 Urine Blood NEGATIVE (NEGATIVE) 03/29/17 23:20 Urine Nitrate NEGATIVE (NEGATIVE) 03/29/17 23:20 Urine Bilirubin NEGATIVE (NEGATIVE) 03/29/17 23:20 Urine Urobilinogen 0.2 E.U./dL (0.2 - 1.0) 03/29/17 23:20 Ur Leukocyte Esterase NEGATIVE (NEGATIVE) 03/29/17 23:20 Urine RBC NONE SEEN /hpf (0-5) 03/29/17 23:20 Urine WBC NONE SEEN /hpf (0-5) 03/29/17 23:20 Ur Epithelial Cells NONE SEEN /lpf (FEW) 03/29/17 23:20 Urine Bacteria NONE SEEN /hpf (NONE SEEN) 03/29/17 23:20 Stool Leukocyte NO WBC SEEN 03/29/17 23:20 - Physical Exam Vitals and I&O: Vital Signs Temp 97.7 F 04/02/17 04:00 Pulse 68 04/02/17 04:00 Resp 18 04/02/17 08:28 BP 110/68 04/02/17 04:00 Pulse Ox 93 04/02/17 04:00 Intake & Output 04/01/17 04/02/17 04/02/17 18:59 06:59 18:59 Intake Total 500 1600 Output Total 0 Balance 500 1600 Weight (lbs) 277 lb 3.2 oz 277 lb 12.8 oz Intake: Intake, IV Amount 1000 D5-0.45NS 1,000 ml @ 80 1000 mls/hr IV .[id number] [facility] Rx #:[id number] Oral 500 600 Output: Stool 0 Other: # Voids 2 4 Active Medications: Current Medications Acetaminophen (Tylenol) 650 mg PO Q4H PRN PRN Reason: Pain Or Fever above 101 Stop: 05/29/17 00:22 Albuterol Sulfate (Albuterol 2.5mg/3ml Neb Ud) 2.5 mg HHN Q2HRT PRN PRN Reason: Shortness of Breath or Wheeze Stop: 05/29/17 00:22 Allopurinol (Zyloprim) 200 mg PO DAILY [facility] Stop: 05/29/17 08:59 Last Admin: 04/01/17 08:13 Dose: 200 mg Divalproex Sodium (Depakote Dr) 500 mg PO QAM REBECCA PRN Reason: Protocol Stop: 05/29/17 08:59 Last Admin: 04/01/17 08:13 Dose: 500 mg Divalproex Sodium (Depakote Dr) 1,000 mg PO HS REBECCA PRN Reason: Protocol Stop: 05/29/17 20:59 Last Admin: 04/01/17 21:06 Dose: 1,000 mg Guaifenesin (Robitussin) 200 mg PO Q4HR PRN PRN Reason: Cough or Congestion Stop: 05/29/17 00:22 Heparin Sodium (Porcine) (Heparin) 5,000 units SUBQ Q12HR [facility] Stop: 05/29/17 08:59 Last Admin: 04/01/17 20:57 Dose: 5,000 units Dextrose/Sodium Chloride (D5-0.45ns) 1,000 mls @ 80 mls/hr IV .[id number] [facility] Stop: 05/29/17 00:29 Last Admin: 04/02/17 05:40 Dose: 80 mls/hr Ipratropium [place] (Atrovent Neb 0.5mg/2.5ml) 0.5 mg IH Q2HRT PRN PRN Reason: Shortness of Breath or Wheeze Stop: 05/29/17 00:22 Lactobacillus Rhamnosus (Culturelle) 1 each PO DAILY [facility] Stop: 05/29/17 12:14 Last Admin: 04/01/17 08:13 Dose: 1 each Levothyroxine Sodium (Synthroid) 0.075 mg PO QDAC [facility] Stop: 05/29/17 07:29 Last Admin: 04/02/17 07:07 Dose: 0.075 mg Loperamide HCl (Imodium) 2 mg PO Q4HR PRN PRN Reason: Diarrhea Stop: 05/29/17 00:22 Montelukast Sodium (Singulair) 10 mg PO DAILY [facility] Stop: 05/29/17 08:59 Last Admin: 04/01/17 08:13 Dose: 10 mg Ondansetron HCl (Zofran) 4 mg IV Q8H PRN PRN Reason: Nausea / Vomiting Stop: 05/29/17 00:22 Quetiapine Fumarate (Seroquel) 300 mg PO HS REBECCA PRN Reason: Protocol Stop: 05/29/17 20:59 Last Admin: 04/01/17 21:06 Dose: 300 mg Simvastatin (Zocor) 20 mg PO HS REBECCA PRN Reason: Protocol Stop: 05/29/17 20:59 Last Admin: 04/01/17 21:05 Dose: 20 mg Temazepam (Restoril) 30 mg PO HS REBECCA Stop: 05/29/17 20:59 Last Admin: 04/01/17 20:54 Dose: 30 mg Theophylline (Carlos-Dur) 300 mg PO HS REBECCA Stop: 05/29/17 20:59 Last Admin: 04/01/17 20:57 Dose: 300 mg Zolpidem Tartrate (Ambien) 10 mg PO HS PRN PRN Reason: Insomnia Stop: 05/29/17 00:22 General: alert HEENT: NC/AT, PERRLA Neck: Supple Cardiovascular: RRR, Normal S1, Normal S2, without murmur Abdomen: soft, non-tender, non-distended, positive bowel sound Neurological: alert Internal Medicine Assmt/Plan - Assessment Assessment: abdominal pain- resolved diarrhea- resolved hyperlipidemia morbid obesity htn convulsion gout copd hypothyroidism - Plan Plan: dc once cleared by consultants EMPIRIC IVABX AM LABS IVF FOR HYDRATION Nutritional Asmnt/Malnutr-PDOC - Dietary Evaluation Malnutrition Findings (Please click <Entered> for more info): Nutritional Asmnt/Malnutrition Start: 03/30/17 11: 58 Text: Status: Complete Freq: Document 04/01/17 17:39 [facility] (Rec: 04/01/17 17:47 [facility] [id number]) Nutritional Asmnt/Malnutrition Patient General Information Nutritional Screening High Risk Screening Diagnosis Abdominal pain, diarrhea Pertinent Medical Hx/Surgical Hx Gout, HTN, CVA, dyslipidemia, anemia, hypothyroidism, hypokalemia, psychosis, convulsions, COPD Subjective Information Pt is a 56-year-old female from [facility] admitted with chief complaint of 3 days of diarrhea. Pt was easily arousable and able to answer questions; however, pt appeared distracted. Pt is morbidly obese and is unfamiliar with her UBW or wt hx. RD informed pt of current wt and to monitor trends to prevent wt gain. Pt is tolerating full liquid diet with no diarrhea. Diet advanced to regular for dinner . Pt reports no recent changes to appetite, typically eating 3 times a day. Current Diet Order/ Nutrition Support Regular Patient / S.O Can Pertinent Medications D5-0.45 ns, Depakote, Culturelle, Seroquel, Zocor Pertinent Labs Reviewed. Nutritional Hx/Data Height 5 ft 1 in Height (Calculated Centimeters) 154.9 Current Weight (lbs) 277 lb 3.2 oz Weight (Calculated Kilograms) 125.7 Weight (Calculated Grams) 499163.8 [place] Body Weight 105 % [place] Body Weight 264 Recent Weight Change No Weight Status Morbidly Obese GI Symptoms GI Symptoms None Food Allergies No Cultural/Ethnic/Zoroastrianism Belief No cultural or latter day beliefs noted. Usual diet at home Regular Skin Integrity/Comment: Miki 17. Skin intact. Current %PO Good (75-100%) Estimated Nutritional Goals Calories/Kcals/Kg Based on adjusted body wt 67.3 kg due to morbid obesity Kcals Calculated 1394-4269 kcals/day (25-30 kcals/kg) Protein g/kg: Based on adjusted body wt 67.3 kg due to morbid obesity Protein Calculated 67-81 gm/day (1-1.2 gm/kg) Fluid: ml 2867-5252 ml/day (30-35 ml/kg) Nutritional Problem 1. Problem Problem Malnutrition related to Etiology morbid obesity as evidenced by Signs/Symptoms: BMI 52.4 kg/m2 and 264% of ideal body wt. Malnutrition Alert Protein-Calorie Malnutrition N/A Is there a minimum of two criteria No selected? Query Text:Check all the applicable criteria. A minimum of two criteria are recommended for diagnosis of either severe or non-severe malnutrition. Malnutrition Related to Morbid Obesity Malnutrition related to morbid obesity BMI> or equal to 40 Query Text:(Any 1 Criteria met) Malnutrition related to morbid obesity Yes Intervention/Recommendation Recommendations by RD Dietary Education by RD1 Comments 1. Continue with current diet as it is adequate to meet estimated nutriitonal needs. Monitor tolerance. 2. Reinforce on wt management with pt during follow up with pt is more alert and oriented. Expected Outcomes/Goals Expected Outcomes/Goals Have pt meet at least 75% of estimated nutritional needs with acceptable tolerance. Physician Parameters for PEM Serum Albumin (g/dl) 3.1 - 3.4 (Mild)
[2017-04-02] MEDS: Lactobacillus Rhamnosus 10 Billion CFU Capsule PO SCH (09:31)
[2017-04-02 10:08] LABS: EOSINOPHIL 1 % (0-5); NEUTROPHILS 41 % (40-80); PLATELET ESTIMATE DECREASED PLATELETS (NORMAL); PLATELET MORPHOLOGY NORMAL (NORMAL); TOTAL CELLS COUNTED 100
--- NOTE | 2017-04-02 11:28 | General Progress Note ---
Subjective - Review of Systems Service Date: 04/02/17 Events since last encounter: will consider hernia repair for Tuesday if cleared Objective - Results Result Diagrams: 04/02/17 05:32 04/02/17 05:32 Recent Labs: Laboratory Last Values WBC 5.6 Th/cmm (4.8-10.8) 04/02/17 05:32 RBC 4.28 Mil/cmm (3.80-5.10) 04/02/17 05:32 Hgb 13.2 gm/dL (11.7-15.5) 04/02/17 05:32 Hct 39.2 % (35.0-45.0) 04/02/17 05:32 MCV 91.7 fl (81-100) 04/02/17 05:32 MCH 30.8 pg (27.0-31.0) 04/02/17 05:32 MCHC Differential 33.6 pg (28.0-36.0) 04/02/17 05:32 RDW 13.5 % (11.5-20.0) 04/02/17 05:32 Plt Count 140 Th/cmm (150-400) L 04/02/17 05:32 MPV 9.6 fl 04/02/17 05:32 Neutrophils % 55.8 % (40.0-80.0) 03/29/17 22:00 Band Neutrophils % 0 % (0-10) 04/01/17 06:04 Lymphocytes % 34.2 % (20.0-50.0) 03/29/17 22:00 Monocytes % 8.1 % (2.0-10.0) 03/29/17 22:00 Eosinophils % 1.8 % (0.0-5.0) 03/29/17 22:00 Basophils % 0.1 % (0.0-2.0) 03/29/17 22:00 Neutrophils (Manual) 41 % (40-80) 04/02/17 05:32 Lymphocytes 39 % (20-50) 04/02/17 05:32 Monocytes 17 % (2-10) H 04/02/17 05:32 Eosinophils 1 % (0-5) 04/02/17 05:32 Atypical Lymphocytes 2 % 04/02/17 05:32 Platelet Estimate DECREASED PLATELE[place] (NORMAL) 04/02/17 05:32 Platelet Morphology NORMAL (NORMAL) 04/02/17 05:32 RBC Morph Micro Appear NORMAL (NORMAL) 04/02/17 05:32 Sodium 139 mEq/L (136-145) 04/02/17 05:32 Potassium 4.2 mEq/L (3.5-5.1) 04/02/17 05:32 Chloride 106 mEq/L (98-107) 04/02/17 05:32 Carbon Dioxide 31.8 mEq/L (21.0-31.0) H 04/02/17 05:32 Anion Gap 5.4 (7.0-16.0) L 04/02/17 05:32 BUN 14 mg/dL (7-25) 04/02/17 05:32 Creatinine 0.7 mg/dL (0.6-1.2) 04/02/17 05:32 Est GFR ( Amer) > 60.0 ml/min (>90) 04/02/17 05:32 Est GFR (Non-Af Amer) > 60.0 ml/min 04/02/17 05:32 BUN/Creatinine Ratio 20.0 04/02/17 05:32 Glucose 114 mg/dL (70-105) H 04/02/17 05:32 Calcium 9.6 mg/dL (8.6-10.3) 04/02/17 05:32 Total Bilirubin 0.3 mg/dL (0.3-1.0) 03/29/17 22:00 AST 16 U/L (13-39) 03/29/17 22:00 ALT 20 U/L (7-52) 03/29/17 22:00 Alkaline Phosphatase 81 U/L (34-104) 03/29/17 22:00 Total Protein 6.1 gm/dL (6.0-8.3) 03/29/17 22:00 Albumin 3.4 gm/dL (3.7-5.3) L 03/29/17 22:00 Globulin 2.7 gm/dL 03/29/17 22:00 Albumin/Globulin Ratio 1.3 (1.0-1.8) 03/29/17 22:00 Urine Source CATH 03/29/17 23:20 Urine Color YELLOW 03/29/17 23:20 Urine Clarity CLEAR (CLEAR) 03/29/17 23:20 Urine pH 6.5 (4.6 - 8.0) 03/29/17 23:20 Ur Specific [place] 1.010 (1.005-1.030) 03/29/17 23:20 Urine Protein NEGATIVE mg/dL (NEGATIVE) 03/29/17 23:20 Urine Glucose (UA) NEGATIVE mg/dL (NEGATIVE) 03/29/17 23:20 Urine Ketones NEGATIVE mg/dL (NEGATIVE) 03/29/17 23:20 Urine Blood NEGATIVE (NEGATIVE) 03/29/17 23:20 Urine Nitrate NEGATIVE (NEGATIVE) 03/29/17 23:20 Urine Bilirubin NEGATIVE (NEGATIVE) 03/29/17 23:20 Urine Urobilinogen 0.2 E.U./dL (0.2 - 1.0) 03/29/17 23:20 Ur Leukocyte Esterase NEGATIVE (NEGATIVE) 03/29/17 23:20 Urine RBC NONE SEEN /hpf (0-5) 03/29/17 23:20 Urine WBC NONE SEEN /hpf (0-5) 03/29/17 23:20 Ur Epithelial Cells NONE SEEN /lpf (FEW) 03/29/17 23:20 Urine Bacteria NONE SEEN /hpf (NONE SEEN) 03/29/17 23:20 Stool Leukocyte NO WBC SEEN 03/29/17 23:20 - Physical Exam Vitals and I&O: Vital Signs Temp 98.0 F 04/02/17 08:00 Pulse 68 04/02/17 08:00 Resp 18 04/02/17 08:28 BP 121/72 04/02/17 08:00 Pulse Ox 96 04/02/17 08:00 Intake & Output 04/01/17 04/02/17 04/02/17 18:59 06:59 18:59 Intake Total 500 1600 Output Total 0 Balance 500 1600 Weight (lbs) 125.736 kg 126.008 kg Intake: Intake, IV Amount 1000 D5-0.45NS 1,000 ml @ 80 1000 mls/hr IV .[id number] [facility] Rx #:[id number] Oral 500 600 Output: Stool 0 Other: # Voids 2 4 Active Medications: Current Medications Acetaminophen (Tylenol) 650 mg PO Q4H PRN PRN Reason: Pain Or Fever above 101 Stop: 05/29/17 00:22 Albuterol Sulfate (Albuterol 2.5mg/3ml Neb Ud) 2.5 mg HHN Q2HRT PRN PRN Reason: Shortness of Breath or Wheeze Stop: 05/29/17 00:22 Allopurinol (Zyloprim) 200 mg PO DAILY [facility]BECCA Stop: 05/29/17 08:59 Last Admin: 04/02/17 09:30 Dose: 200 mg Divalproex Sodium (Depakote Dr) 500 mg PO QAM REBECCA PRN Reason: Protocol Stop: 05/29/17 08:59 Last Admin: 04/02/17 09:31 Dose: 500 mg Divalproex Sodium (Depakote Dr) 1,000 mg PO HS REBECCA PRN Reason: Protocol Stop: 05/29/17 20:59 Last Admin: 04/01/17 21:06 Dose: 1,000 mg Guaifenesin (Robitussin) 200 mg PO Q4HR PRN PRN Reason: Cough or Congestion Stop: 05/29/17 00:22 Heparin Sodium (Porcine) (Heparin) 5,000 units SUBQ Q12HR [facility]CCA Stop: 05/29/17 08:59 Last Admin: 04/02/17 09:29 Dose: 5,000 units Dextrose/Sodium Chloride (D5-0.45ns) 1,000 mls @ 80 mls/hr IV .[id number] [facility] Stop: 05/29/17 00:29 Last Admin: 04/02/17 05:40 Dose: 80 mls/hr Ipratropium [place] (Atrovent Neb 0.5mg/2.5ml) 0.5 mg IH Q2HRT PRN PRN Reason: Shortness of Breath or Wheeze Stop: 05/29/17 00:22 Lactobacillus Rhamnosus (Culturelle) 1 each PO DAILY [facility]BECCA Stop: 05/29/17 12:14 Last Admin: 04/02/17 09:31 Dose: 1 each Levothyroxine Sodium (Synthroid) 0.075 mg PO QDAC [facility]BECCA Stop: 05/29/17 07:29 Last Admin: 04/02/17 07:07 Dose: 0.075 mg Loperamide HCl (Imodium) 2 mg PO Q4HR PRN PRN Reason: Diarrhea Stop: 05/29/17 00:22 Montelukast Sodium (Singulair) 10 mg PO DAILY [facility] Stop: 05/29/17 08:59 Last Admin: 04/02/17 09:31 Dose: 10 mg Ondansetron HCl (Zofran) 4 mg IV Q8H PRN PRN Reason: Nausea / Vomiting Stop: 05/29/17 00:22 Quetiapine Fumarate (Seroquel) 300 mg PO HS REBECCA PRN Reason: Protocol Stop: 05/29/17 20:59 Last Admin: 04/01/17 21:06 Dose: 300 mg Simvastatin (Zocor) 20 mg PO HS REBECCA PRN Reason: Protocol Stop: 05/29/17 20:59 Last Admin: 04/01/17 21:05 Dose: 20 mg Temazepam (Restoril) 30 mg PO HS [facility] Stop: 05/29/17 20:59 Last Admin: 04/01/17 20:54 Dose: 30 mg Theophylline (Carlos-Dur) 300 mg PO HS REBECCA Stop: 05/29/17 20:59 Last Admin: 04/01/17 20:57 Dose: 300 mg Zolpidem Tartrate (Ambien) 10 mg PO HS PRN PRN Reason: Insomnia Stop: 05/29/17 00:22 Nutritional Asmnt/Malnutr-PDOC - Dietary Evaluation Malnutrition Findings (Please click <Entered> for more info): Nutritional Asmnt/Malnutrition Start: 03/30/17 11: 58 Text: Status: Complete Freq: Document 04/01/17 17:39 [facility] (Rec: 04/01/17 17:47 [facility] [id number]) Nutritional Asmnt/Malnutrition Patient General Information Nutritional Screening High Risk Screening Diagnosis Abdominal pain, diarrhea Pertinent Medical Hx/Surgical Hx Gout, HTN, CVA, dyslipidemia, anemia, hypothyroidism, hypokalemia, psychosis, convulsions, COPD Subjective Information Pt is a 56-year-old female from [facility] admitted with chief complaint of 3 days of diarrhea. Pt was easily arousable and able to answer questions; however, pt appeared distracted. Pt is morbidly obese and is unfamiliar with her UBW or wt hx. RD informed pt of current wt and to monitor trends to prevent wt gain. Pt is tolerating full liquid diet with no diarrhea. Diet advanced to regular for dinner . Pt reports no recent changes to appetite, typically eating 3 times a day. Current Diet Order/ Nutrition Support Regular Patient / S.O Can Pertinent Medications D5-0.45 ns, Depakote, Culturelle, Seroquel, Zocor Pertinent Labs Reviewed. Nutritional Hx/Data Height 1.55 m Height (Calculated Centimeters) 154.9 Current Weight (lbs) 125.736 kg Weight (Calculated Kilograms) 125.7 Weight (Calculated Grams) 949699.8 [place] Body Weight 105 % [place] Body Weight 264 Recent Weight Change No Weight Status Morbidly Obese GI Symptoms GI Symptoms None Food Allergies No Cultural/Ethnic/Church Belief No cultural or baptism beliefs noted. Usual diet at home Regular Skin Integrity/Comment: Miki 17. Skin intact. Current %PO Good (75-100%) Estimated Nutritional Goals Calories/Kcals/Kg Based on adjusted body wt 67.3 kg due to morbid obesity Kcals Calculated 1106-1579 kcals/day (25-30 kcals/kg) Protein g/kg: Based on adjusted body wt 67.3 kg due to morbid obesity Protein Calculated 67-81 gm/day (1-1.2 gm/kg) Fluid: ml 5943-6903 ml/day (30-35 ml/kg) Nutritional Problem 1. Problem Problem Malnutrition related to Etiology morbid obesity as evidenced by Signs/Symptoms: BMI 52.4 kg/m2 and 264% of ideal body wt. Malnutrition Alert Protein-Calorie Malnutrition N/A Is there a minimum of two criteria No selected? Query Text:Check all the applicable criteria. A minimum of two criteria are recommended for diagnosis of either severe or non-severe malnutrition. Malnutrition Related to Morbid Obesity Malnutrition related to morbid obesity BMI> or equal to 40 Query Text:(Any 1 Criteria met) Malnutrition related to morbid obesity Yes Intervention/Recommendation Recommendations by RD Dietary Education by RD1 Comments 1. Continue with current diet as it is adequate to meet estimated nutriitonal needs. Monitor tolerance. 2. Reinforce on wt management with pt during follow up with pt is more alert and oriented. Expected Outcomes/Goals Expected Outcomes/Goals Have pt meet at least 75% of estimated nutritional needs with acceptable tolerance. Physician Parameters for PEM Serum Albumin (g/dl) 3.1 - 3.4 (Mild)
[2017-04-02] MEDS: Theophylline 100 mg ER Tab PO SCH (20:53)
[2017-04-03] MEDS: Levothyroxine 0.075 Mg Tab PO SCH (06:36)
--- NOTE | 2017-04-03 08:00 | Internal Medicine Prog Note ---
Internal Medicine Subjective - Subjective Service Date: 04/03/17 Patient is:: awake, verbal Patient Complaints of:: diarrhea (resolved ) Per staff patient has:: tolerating meds Internal Medicine Objective - Results Result Diagrams: 04/02/17 05:32 04/02/17 05:32 Recent Labs: Laboratory Last Values WBC 5.6 Th/cmm (4.8-10.8) 04/02/17 05:32 RBC 4.28 Mil/cmm (3.80-5.10) 04/02/17 05:32 Hgb 13.2 gm/dL (11.7-15.5) 04/02/17 05:32 Hct 39.2 % (35.0-45.0) 04/02/17 05:32 MCV 91.7 fl (81-100) 04/02/17 05:32 MCH 30.8 pg (27.0-31.0) 04/02/17 05:32 MCHC Differential 33.6 pg (28.0-36.0) 04/02/17 05:32 RDW 13.5 % (11.5-20.0) 04/02/17 05:32 Plt Count 140 Th/cmm (150-400) L 04/02/17 05:32 MPV 9.6 fl 04/02/17 05:32 Neutrophils % 55.8 % (40.0-80.0) 03/29/17 22:00 Band Neutrophils % 0 % (0-10) 04/01/17 06:04 Lymphocytes % 34.2 % (20.0-50.0) 03/29/17 22:00 Monocytes % 8.1 % (2.0-10.0) 03/29/17 22:00 Eosinophils % 1.8 % (0.0-5.0) 03/29/17 22:00 Basophils % 0.1 % (0.0-2.0) 03/29/17 22:00 Neutrophils (Manual) 41 % (40-80) 04/02/17 05:32 Lymphocytes 39 % (20-50) 04/02/17 05:32 Monocytes 17 % (2-10) H 04/02/17 05:32 Eosinophils 1 % (0-5) 04/02/17 05:32 Atypical Lymphocytes 2 % 04/02/17 05:32 Platelet Estimate DECREASED PLATELETS (NORMAL) 04/02/17 05:32 Platelet Morphology NORMAL (NORMAL) 04/02/17 05:32 RBC Morph Micro Appear NORMAL (NORMAL) 04/02/17 05:32 Sodium 139 mEq/L (136-145) 04/02/17 05:32 Potassium 4.2 mEq/L (3.5-5.1) 04/02/17 05:32 Chloride 106 mEq/L (98-107) 04/02/17 05:32 Carbon Dioxide 31.8 mEq/L (21.0-31.0) H 04/02/17 05:32 Anion Gap 5.4 (7.0-16.0) L 04/02/17 05:32 BUN 14 mg/dL (7-25) 04/02/17 05:32 Creatinine 0.7 mg/dL (0.6-1.2) 04/02/17 05:32 Est GFR ( Amer) > 60.0 ml/min (>90) 04/02/17 05:32 Est GFR (Non-Af Amer) > 60.0 ml/min 04/02/17 05:32 BUN/Creatinine Ratio 20.0 04/02/17 05:32 Glucose 114 mg/dL (70-105) H 04/02/17 05:32 Calcium 9.6 mg/dL (8.6-10.3) 04/02/17 05:32 Total Bilirubin 0.3 mg/dL (0.3-1.0) 03/29/17 22:00 AST 16 U/L (13-39) 03/29/17 22:00 ALT 20 U/L (7-52) 03/29/17 22:00 Alkaline Phosphatase 81 U/L (34-104) 03/29/17 22:00 Total Protein 6.1 gm/dL (6.0-8.3) 03/29/17 22:00 Albumin 3.4 gm/dL (3.7-5.3) L 03/29/17 22:00 Globulin 2.7 gm/dL 03/29/17 22:00 Albumin/Globulin Ratio 1.3 (1.0-1.8) 03/29/17 22:00 Urine Source CATH 03/29/17 23:20 Urine Color YELLOW 03/29/17 23:20 Urine Clarity CLEAR (CLEAR) 03/29/17 23:20 Urine pH 6.5 (4.6 - 8.0) 03/29/17 23:20 Ur Specific Kelly 1.010 (1.005-1.030) 03/29/17 23:20 Urine Protein NEGATIVE mg/dL (NEGATIVE) 03/29/17 23:20 Urine Glucose (UA) NEGATIVE mg/dL (NEGATIVE) 03/29/17 23:20 Urine Ketones NEGATIVE mg/dL (NEGATIVE) 03/29/17 23:20 Urine Blood NEGATIVE (NEGATIVE) 03/29/17 23:20 Urine Nitrate NEGATIVE (NEGATIVE) 03/29/17 23:20 Urine Bilirubin NEGATIVE (NEGATIVE) 03/29/17 23:20 Urine Urobilinogen 0.2 E.U./dL (0.2 - 1.0) 03/29/17 23:20 Ur Leukocyte Esterase NEGATIVE (NEGATIVE) 03/29/17 23:20 Urine RBC NONE SEEN /hpf (0-5) 03/29/17 23:20 Urine WBC NONE SEEN /hpf (0-5) 03/29/17 23:20 Ur Epithelial Cells NONE SEEN /lpf (FEW) 03/29/17 23:20 Urine Bacteria NONE SEEN /hpf (NONE SEEN) 03/29/17 23:20 Stool Leukocyte NO WBC SEEN 03/29/17 23:20 - Physical Exam Vitals and I&O: Vital Signs Temp 97.0 F 04/03/17 04:00 Pulse 72 04/03/17 04:00 Resp 20 04/03/17 04:00 BP 109/65 04/03/17 04:00 Pulse Ox 96 04/03/17 04:00 Intake & Output 04/02/17 04/03/17 04/03/17 18:59 06:59 18:59 Intake Total 1000 360 Balance 1000 360 Weight (lbs) 277 lb 277 lb 8 oz Intake: Intake, IV Amount 1000 D5-0.45NS 1,000 ml @ 80 1000 mls/hr IV .[id number] REBECCA Rx #:[id number] Oral 360 Other: # Voids 5 4 # Bowel Movements 0 Active Medications: Current Medications Acetaminophen (Tylenol) 650 mg PO Q4H PRN PRN Reason: Pain Or Fever above 101 Stop: 05/29/17 00:22 Albuterol Sulfate (Albuterol 2.5mg/3ml Neb Ud) 2.5 mg HHN Q2HRT PRN PRN Reason: Shortness of Breath or Wheeze Stop: 05/29/17 00:22 Allopurinol (Zyloprim) 200 mg PO DAILY [facility] Stop: 05/29/17 08:59 Last Admin: 04/02/17 09:30 Dose: 200 mg Divalproex Sodium (Depakote Dr) 500 mg PO QAM REBECCA PRN Reason: Protocol Stop: 05/29/17 08:59 Last Admin: 04/02/17 09:31 Dose: 500 mg Divalproex Sodium (Depakote Dr) 1,000 mg PO HS REBECCA PRN Reason: Protocol Stop: 05/29/17 20:59 Last Admin: 04/02/17 20:54 Dose: 1,000 mg Guaifenesin (Robitussin) 200 mg PO Q4HR PRN PRN Reason: Cough or Congestion Stop: 05/29/17 00:22 Heparin Sodium (Porcine) (Heparin) 5,000 units SUBQ Q12HR REBECCA Stop: 05/29/17 08:59 Last Admin: 04/02/17 20:53 Dose: 5,000 units Dextrose/Sodium Chloride (D5-0.45ns) 1,000 mls @ 80 mls/hr IV .[id number] [facility] Stop: 05/29/17 00:29 Last Admin: 04/02/17 18:29 Dose: 80 mls/hr Ipratropium [place] (Atrovent Neb 0.5mg/2.5ml) 0.5 mg IH Q2HRT PRN PRN Reason: Shortness of Breath or Wheeze Stop: 05/29/17 00:22 Lactobacillus Rhamnosus (Culturelle) 1 each PO DAILY [facility] Stop: 05/29/17 12:14 Last Admin: 04/02/17 09:31 Dose: 1 each Levothyroxine Sodium (Synthroid) 0.075 mg PO QDAC [facility] Stop: 05/29/17 07:29 Last Admin: 04/03/17 06:36 Dose: 0.075 mg Loperamide HCl (Imodium) 2 mg PO Q4HR PRN PRN Reason: Diarrhea Stop: 05/29/17 00:22 Montelukast Sodium (Singulair) 10 mg PO DAILY [facility] Stop: 05/29/17 08:59 Last Admin: 04/02/17 09:31 Dose: 10 mg Ondansetron HCl (Zofran) 4 mg IV Q8H PRN PRN Reason: Nausea / Vomiting Stop: 05/29/17 00:22 Quetiapine Fumarate (Seroquel) 300 mg PO HS REBECCA PRN Reason: Protocol Stop: 05/29/17 20:59 Last Admin: 04/02/17 20:54 Dose: 300 mg Simvastatin (Zocor) 20 mg PO HS REBECCA PRN Reason: Protocol Stop: 05/29/17 20:59 Last Admin: 04/02/17 20:54 Dose: 20 mg Temazepam (Restoril) 30 mg PO HS REBECCA Stop: 05/29/17 20:59 Last Admin: 04/02/17 20:54 Dose: 30 mg Theophylline (Carlos-Dur) 300 mg PO HS REBECCA Stop: 05/29/17 20:59 Last Admin: 04/02/17 20:53 Dose: 300 mg Zolpidem Tartrate (Ambien) 10 mg PO HS PRN PRN Reason: Insomnia Stop: 05/29/17 00:22 General: alert HEENT: NC/AT, PERRLA Neck: Supple Cardiovascular: RRR, Normal S1, Normal S2, without murmur Abdomen: soft, non-tender, non-distended, positive bowel sound Neurological: alert Internal Medicine Assmt/Plan - Assessment Assessment: abdominal pain- resolved diarrhea- resolved hyperlipidemia morbid obesity htn convulsion gout copd hypothyroidism - Plan Plan: hernia repair tomorrow EMPIRIC IVABX AM LABS IVF FOR HYDRATION Nutritional Asmnt/Malnutr-PDOC - Dietary Evaluation Malnutrition Findings (Please click <Entered> for more info): Nutritional Asmnt/Malnutrition Start: 03/30/17 11: 58 Text: Status: Complete Freq: Document 04/01/17 17:39 [facility] (Rec: 04/01/17 17:47 [facility] [id number]) Nutritional Asmnt/Malnutrition Patient General Information Nutritional Screening High Risk Screening Diagnosis Abdominal pain, diarrhea Pertinent Medical Hx/Surgical Hx Gout, HTN, CVA, dyslipidemia, anemia, hypothyroidism, hypokalemia, psychosis, convulsions, COPD Subjective Information Pt is a 56-year-old female from [facility] admitted with chief complaint of 3 days of diarrhea. Pt was easily arousable and able to answer questions; however, pt appeared distracted. Pt is morbidly obese and is unfamiliar with her UBW or wt hx. RD informed pt of current wt and to monitor trends to prevent wt gain. Pt is tolerating full liquid diet with no diarrhea. Diet advanced to regular for dinner . Pt reports no recent changes to appetite, typically eating 3 times a day. Current Diet Order/ Nutrition Support Regular Patient / S.O Can Pertinent Medications D5-0.45 ns, Depakote, Culturelle, Seroquel, Zocor Pertinent Labs Reviewed. Nutritional Hx/Data Height 5 ft 1 in Height (Calculated Centimeters) 154.9 Current Weight (lbs) 277 lb 3.2 oz Weight (Calculated Kilograms) 125.7 Weight (Calculated Grams) 639573.8 [place] Body Weight 105 % [place] Body Weight 264 Recent Weight Change No Weight Status Morbidly Obese GI Symptoms GI Symptoms None Food Allergies No Cultural/Ethnic/Sabianist Belief No cultural or synagogue beliefs noted. Usual diet at home Regular Skin Integrity/Comment: Miki 17. Skin intact. Current %PO Good (75-100%) Estimated Nutritional Goals Calories/Kcals/Kg Based on adjusted body wt 67.3 kg due to morbid obesity Kcals Calculated 1048-8026 kcals/day (25-30 kcals/kg) Protein g/kg: Based on adjusted body wt 67.3 kg due to morbid obesity Protein Calculated 67-81 gm/day (1-1.2 gm/kg) Fluid: ml 1593-6938 ml/day (30-35 ml/kg) Nutritional Problem 1. Problem Problem Malnutrition related to Etiology morbid obesity as evidenced by Signs/Symptoms: BMI 52.4 kg/m2 and 264% of ideal body wt. Malnutrition Alert Protein-Calorie Malnutrition N/A Is there a minimum of two criteria No selected? Query Text:Check all the applicable criteria. A minimum of two criteria are recommended for diagnosis of either severe or non-severe malnutrition. Malnutrition Related to Morbid Obesity Malnutrition related to morbid obesity BMI> or equal to 40 Query Text:(Any 1 Criteria met) Malnutrition related to morbid obesity Yes Intervention/Recommendation Recommendations by RD Dietary Education by RD1 Comments 1. Continue with current diet as it is adequate to meet estimated nutriitonal needs. Monitor tolerance. 2. Reinforce on wt management with pt during follow up with pt is more alert and oriented. Expected Outcomes/Goals Expected Outcomes/Goals Have pt meet at least 75% of estimated nutritional needs with acceptable tolerance. Physician Parameters for PEM Serum Albumin (g/dl) 3.1 - 3.4 (Mild)
[2017-04-03] MEDS: Lactobacillus Rhamnosus 10 Billion CFU Capsule PO SCH (09:01)
--- NOTE | 2017-04-03 11:14 | Consultation ---
DATE OF CONSULTATION: 04/03/2017 REFERRING PHYSICIAN: Dr. De La O. REASON FOR CONSULTATION: Large ventral hernia. Thank you for referring this patient to me. HISTORY OF PRESENT ILLNESS: This is a 56-year-old female who is extremely obese, who was sent in from the senior care because of 3-day history of diarrhea. PAST MEDICAL HISTORY: Gout, hypertension, CVA, dyslipidemia, anemia, hypothyroidism, psychosis, convulsion and COPD. LABORATORY STUDIES: On admission, the CBC was normal. Chemistry likewise. The patient underwent a CT scan of the abdomen and this showed a massive hernia with small and large bowel in the sac with no evidence of obstruction or strangulation, however. The patient has an extensive fusion with lower lumbar and cervical spine. PHYSICAL EXAMINATION: The patient appears to be alert. Information is; however, very sketchy and likely not reliable. The patient has no family. She is obese and has a large ventral hernia with bowel content present, but nontender. RECOMMENDATIONS: We will try and get hold of family, but apparently there is no body. The patient is not symptomatic with pain at this time and there is no strangulation. It is probably best to repair this hernia if patient is seen to be able to give consent otherwise someone in family or 2 physicians ____ this is of medical necessity. We will follow with you. JOB# [id number]
[2017-04-03] MEDS: D5-0.45NS 1,000 ML IV SCH (15:24)
[2017-04-03] MEDS: Theophylline 100 mg ER Tab PO SCH (21:11)
[2017-04-04] MEDS: D5-0.45NS 1,000 ML IV SCH (05:52)
[2017-04-04 06:34] LABS: HEMATOCRIT 40.9 % (35.0-45.0); HEMOGLOBIN 13.6 gm/dL (11.7-15.5); MEAN CELL VOLUME 91.6 fl (81-100); MEAN CORPUSCULAR HEMOGLOBIN 30.6 pg (27.0-31.0); MEAN CORPUSCULAR HGB CONC 33.4 pg (28.0-36.0); MEAN PLATELET VOLUME 9.4 fl; PLATELET COUNT 145 Th/cmm (150-400); RED BLOOD COUNT 4.46 Mil/cmm (3.80-5.10); RED CELL DISTRIBUTION WIDTH 13.6 % (11.5-20.0); WHITE BLOOD COUNT 5.8 Th/cmm (4.8-10.8)
[2017-04-04] MEDS: Levothyroxine 0.075 Mg Tab PO SCH (06:42)
[2017-04-04 06:44] LABS: ANION GAP 5.5 (7.0-16.0); BUN - UREA NITROGEN 20 mg/dL (7-25); BUN/CREATININE RATIO 28.6; CALCIUM SERUM 10.2 mg/dL (8.6-10.3); CARBON DIOXIDE 30.6 mEq/L (21.0-31.0); CHLORIDE 105 mEq/L (98-107); CREATININE - SERUM 0.7 mg/dL (0.6-1.2); GLUCOSE 87 mg/dL (70-105); POTASSIUM SERUM 4.1 mEq/L (3.5-5.1); SODIUM SERUM 137 mEq/L (136-145)
[2017-04-04] MEDS: Lactobacillus Rhamnosus 10 Billion CFU Capsule PO SCH (08:41)
[2017-04-04 10:01] LABS: EOSINOPHIL 1 % (0-5); NEUTROPHILS 33 % (40-80)
[2017-04-04 10:02] LABS: PLATELET ESTIMATE SLIGHT DECREASED (NORMAL); PLATELET MORPHOLOGY NORMAL (NORMAL)
== END 2017-04-04 14:11 | disposition home or self-care (01) | DRG 249 ==
LOC: ER 21:21 → MSI 03-30 00:15
PROVIDERS: ADMIT Internal Medicine; ATTEND Internal Medicine
DX: R19.7 Diarrhea, unspecified (principal); R56.9 Unspecified convulsions; Z68.43 Body mass index [BMI] 50.0-59.9, adult; I10 Essential (primary) hypertension; E78.5 Hyperlipidemia, unspecified; J44.9 Chronic obstructive pulmonary disease, unspecified; E03.9 Hypothyroidism, unspecified; M10.9 Gout, unspecified; E66.01 Morbid (severe) obesity due to excess calories; E86.0 Dehydration; E11.9 Type 2 diabetes mellitus without complications; K43.9 Ventral hernia without obstruction or gangrene; G89.29 Other chronic pain; Z86.73 Personal history of transient ischemic attack (TIA), and cerebral infarction without residual deficits
CPT/HCPCS: 36415-UA; 80048-TC; 80053-TC; 81001-TC; 85007-TC; 85025-TC; 85027-TC; 87046-90; 87230-TC; 89055-TC; J1644; J7030; J7042; Q9967; Z7610